=== PATIENT | male | born 1965 | race African-American/Black ===

== ENCOUNTER 2024-10-26 10:14 | Inpatient (IN) | payer MEDICAID, SELFPAY ==
[2024-10-26] VITALS (14 sets, daily range): BP systolic 154–211; BP diastolic 77–98; PULSE 55–69; RESP 15–20; TEMP 36.3–36.7; O2SAT 93–100; BMI 27.5
--- NOTE | 2024-10-26 10:23 | EKG_ITS ---
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
--- NOTE | 2024-10-26 10:23 | ED.NEUROSD ---
HPI - Neuro Symptoms/Deficit General Chief Complaint: Neuro Symptoms/Deficit Stated Complaint: poss stroke Time Seen by Provider: 10/26/24 10:22 History of Present Illness HPI Narrative: Patient brought self here. Complaints of left facial droop that involves the left forehead, and slurred speech. No limb complaints. Patient has baseline left leg weakness from injury to this leg years ago. Uses a cane. Complains of headache. Patient states he has on a blood thinner but uncertain of the name. Has not taken his blood pressure medication this morning. Complains of generalized headache. No nausea or vomiting. No vision changes. Unable to close his left eye. Has obvious left facial droop that involves the left forehead. Unable to wrinkle the left side forehead. Patient outside window for TNK/tPA. Onset 10:00 p.m. last night. Over 12 hours ago Related Data Home Medications Medication Instructions Recorded Confirmed Xarelto 20 mg PO 1XD 10/26/24 10/26/24 atorvastatin 20 mg tablet (Lipitor) 40 mg PO QDAY 10/26/24 10/26/24 fluoxetine 20 mg capsule 20 mg PO DAILY 10/26/24 10/26/24 gabapentin 600 mg PO 1XD 10/26/24 losartan 100 mg 10/26/24 metformin 1,000 mg PO 1XD 10/26/24 10/26/24 metoprolol succinate 100 mg PO 1XD 10/26/24 10/26/24 spironolactone 50 mg 10/26/24 Allergies Allergy/AdvReac Type Severity Reaction Status Date / Time No Known Drug Allergies Allergy Verified 10/26/24 15:05 Review of Systems Review of Systems Narrative: GENERAL: Negative chills, fatigue, malaise, fever, sweats. HEENT: Negative sinus pain, ear pain, sore throat RESPIRATORY: Negative dyspnea, cough CARDIOVASCULAR: Negative chest pain, palpitations GASTROINTESTINAL: Negative nausea, vomiting, abdominal pain : Negative dysuria, frequency, hematuria MUSCULOSKELETAL: Negative muscle or bony pain SKIN: Negative rash, skin lesions NEUROLOGIC: Negative weakness, numbness, positive slurred speech facial droop and headache ROS Unobtainable: All systems reviewed & are unremarkable except as noted in HPI and below Patient History Social History household members: family Smoking Status: Never smoker Exam Narrative Exam Narrative: GENERAL: in no distress, not toxic not dyspneic HEAD: Normocephalic. EYES: Pupils equal round ENT: Mucous membranes moist. NECK: Trachea midline. CARDIOVASCULAR: Regular rate and rhythm RESPIRATORY: Clear to auscultation. Breath sounds equal bilaterally. No wheezes, rales, or rhonchi. GASTROINTESTINAL: Abdomen soft, non-tender EXTREMITIES: No gross deformities. BACK: No flank tenderness. NEURO: AOx4. Has slurred speech. Left facial droop involving the left forehead unable to wrinkle. Weak left eyelid closure.. 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 Has chronic left leg weakness due to trauma in the past. Able to lift right leg without difficulty. No drift. Negative pronator drift. Light touch intact to bilateral face but feels a little different on the lower and upper left-sided face. Light touch intact to legs and hands bilaterally SKIN: Warm and dry PSYCH: Not anxious, is cooperative Initial Vital Signs Initial Vital Signs: Vital Signs Pulse Oximetry 93 10/26/24 10:18 Scores NIH Stroke Scale Level of Conciousness: Alert, keenly responsive Ask month/age: Answers both questions correctly. Open/close eyes, close hand: Performs both tasks correctly Best gaze horizontal: Normal Visual lubin: No visual loss Facial palsy: Complete paralysis, absence of movement in the upper and lower face Left arm drift: No drift for full 10 sec Right arm drift: No drift for full 10 sec Left leg drift: No drift for full 5 sec Right leg drift: No drift for full 5 sec Limb ataxia: Absent Sensory on face/arms/legs: Mild to moderate sensory loss, can tell touch Best language: No aphasia, normal Dysarthria: Mild to mod,some slurring Extinction or inattention: No abnormality Total NIH Stroke scale score: 5 Course Orders Ordered: Acetaminophen (Acetaminophen 325 Mg Tablet) 650 mg PO Q6H PRN PRN Reason: Fever/Mild Pain (1-3) Last Admin: 10/27/24 05:50 Dose: 650 mg Documented By: Admin: 10/26/24 18:26 Dose: 650 mg Documented By: BT Artificial Tears (Carboxymethylcellulose Drops) 1 drops EYE-LEFT PRN PRN PRN Reason: Dry Eye(s) Artificial Tears (Mineral Oil/Petrol Ophth Oint 3.5 Gm) 1 applic EYE-LEFT BID PRN PRN Reason: Irritation Aspirin (Aspirin Ec 81 Mg Tablet) 81 mg PO DAILY [facility] Last Admin: 10/27/24 08:49 Dose: 81 mg Documented By: GLENNY Atorvastatin Calcium (Atorvastatin 20 Mg Tablet) 80 mg PO BEDTIME [facility] Clopidogrel Bisulfate (Clopidogrel 75 Mg Tablet) 75 mg PO DAILY [facility] Last Admin: 10/27/24 08:49 Dose: 75 mg Documented By: GLENNY Erythromycin (Erythromycin Ophth 1 Gm Oint) 1 applic EYE-LEFT BID [facility] Last Admin: 10/27/24 05:43 Dose: 1 applic Documented By: Admin: 10/26/24 22:30 Dose: 1 applic Documented By: MANNY Dextrose (D10w) 100 mls @ 1,200 mls/hr IV PRN PRN PRN Reason: Hypoglycemia Insulin Human Lispro (Insulin Lispro 100 Unit/Ml 3ml Vial) 0 unit [facility]; Protocol Last Admin: 10/27/24 07:53 Dose: Not Given Documented By: GLENNY Naloxone HCl (Naloxone 0.4 Mg/Ml Vial) 0.2 mg IV Q2MIN PRN PRN Reason: Opiate Reversal Ondansetron HCl (Ondansetron 4 Mg/2 Ml Inj) 4 mg IV Q8HR PRN PRN Reason: Nausea And Vomiting Discontinued Medications Aspirin (Aspirin 81 Mg Chew Tab) 324 mg PO NOW ONE Stop: 10/26/24 17:03 Last Admin: 10/26/24 17:19 Dose: 324 mg Documented By: Atorvastatin Calcium (Atorvastatin 20 Mg Tablet) 80 mg PO NOW ONE Stop: 10/26/24 20:50 Last Admin: 10/26/24 22:23 Dose: 80 mg Documented By: MANNY Clopidogrel Bisulfate (Clopidogrel 75 Mg Tablet) 75 mg PO NOW ONE Stop: 10/26/24 17:03 Last Admin: 10/26/24 17:19 Dose: 75 mg Documented By: Erythromycin (Erythromycin Ophth 1 Gm Oint) 1 applic EYE-LEFT NOW ONE Stop: 10/26/24 15:55 Last Admin: 10/26/24 15:59 Dose: 1 applic Documented By: Erythromycin (Erythromycin Ophth 1 Gm Oint) 1 applic EYE-LEFT NOW [facility] Hydralazine HCl (Hydralazine 20 Mg/Ml Vial) 10 mg IV NOW ONE Stop: 10/26/24 14:34 Last Admin: 10/26/24 14:38 Dose: Not Given Documented By: BRANDI Hydromorphone HCl (Hydromorphone 1 Mg Inj) 1 mg IV NOW ONE Stop: 10/26/24 11:36 Last Admin: 10/26/24 11:45 Dose: Not Given Documented By: Lorazepam (Lorazepam 2 Mg/Ml Inj) 0.5 mg IV NOW ONE Stop: 10/26/24 15:17 Last Admin: 10/26/24 15:19 Dose: 0.5 mg Documented By: Metoprolol Succinate (Metoprolol Er 50 Mg Tablet) 50 mg PO NOW ONE Stop: 10/26/24 14:37 Last Admin: 10/26/24 14:43 Dose: 50 mg Documented By: Morphine Sulfate (Morphine 4 Mg/Ml Inj) 4 mg IV NOW ONE Stop: 10/26/24 10:26 Last Admin: 10/26/24 11:33 Dose: Not Given Documented By: Ondansetron HCl (Ondansetron 4 Mg/2 Ml Inj) 4 mg IV NOW ONE Stop: 10/26/24 10:26 Last Admin: 10/26/24 11:33 Dose: Not Given Documented By: Oxycodone HCl (Oxycodone Ir 5 Mg Tablet) 5 mg PO NOW ONE Stop: 10/26/24 21:55 Last Admin: 10/26/24 22:22 Dose: 5 mg Documented By: MANNY Oxycodone HCl (Oxycodone Ir 5 Mg Tablet) 5 mg PO NOW ONE Stop: 10/27/24 07:00 Last Admin: 10/27/24 07:05 Dose: 5 mg Documented By: OSCAR Vital Signs Vital signs: Vital Signs - 8 hr 10/26/24 10:18 10/26/24 10:20 10/26/24 10:20 Temperature Pulse Rate 65 Respiratory Rate 18 Blood Pressure 211/96 H Pulse Oximetry 93 99 Oxygen Delivery Method 10/26/24 10:21 10/26/24 10:30 10/26/24 10:31 Temperature 97.7 F Pulse Rate 69 60 Respiratory Rate 16 20 Blood Pressure 211/96 H 180/79 H Pulse Oximetry 97 100 Oxygen Delivery Method Room Air 10/26/24 10:31 10/26/24 11:00 10/26/24 11:01 Temperature Pulse Rate 58 L 56 L Respiratory Rate 19 15 Blood Pressure 167/77 H Pulse Oximetry 99 100 Oxygen Delivery Method 10/26/24 11:01 10/26/24 13:42 10/26/24 14:43 Temperature 98.1 F Pulse Rate 55 L 56 L 69 Respiratory Rate 15 17 Blood Pressure 181/83 H 181/85 H Pulse Oximetry 99 100 Oxygen Delivery Method Room Air 10/26/24 15:29 Temperature Pulse Rate 61 Respiratory Rate Blood Pressure 154/78 H Pulse Oximetry Oxygen Delivery Method MDM - Neuro Symptoms/Deficit Lab Data 10/26/24 10:20 10/26/24 10:20 Labs: Lab Results 10/26/24 Range/Units 10:20 WBC 10.0 (4.5-11.0) X10^3/uL RBC 3.95 L (4.5-5.9) X10^6/uL Hgb 13.0 L (13.5-17.5) g/dL Hct 38.5 L (41-53) % MCV 97.5 (80-100) fL MCH 32.9 (26-34) PG MCHC 33.8 (30-36) % RDW 13.0 (11.6-14.8) % Plt Count 264 (150-400) X10^3/uL Neut % (Auto) 49.1 L (50-75) % Lymph % (Auto) 40.0 (25-40) % Franklin % (Auto) 6.6 (3-14) % Eos % (Auto) 3.6 (2-4) % Baso % (Auto) 0.7 (0-2) % Neut # (Auto) 4900 (8708-2539) /uL Lymph # (Auto) 4000 (6070-2835) /uL Franklin # (Auto) 700 (0-900) /uL Eos # (Auto) 400 (0-450) /uL Baso # (Auto) 100 (0-100) /uL PT 12.4 (9.4-12.5) SECONDS INR 1.1 (0.9-1.3) APTT 38 H (25.1-36.5) SECONDS Sodium 139 (137-145) mmol/L Potassium 4.6 (3.4-5.1) mmol/L Chloride 110 H (98-107) mmol/L Carbon Dioxide 26 (22-32) mmol/L BUN 14 (9-20) mg/dL Creatinine 1.44 H (0.66-1.25) mg/dL Estimated GFR 55 L (>60) mL/min BUN/Creatinine Ratio 9.7 (6-22) Glucose 125 H (80-110) mg/dL Calcium 9.2 (8.4-10.2) mg/dL Total Bilirubin 0.8 (0.2-1.3) mg/dL AST 28 (17-59) IU/L ALT 21 (<50) IU/L Alkaline Phosphatase 79 (38-126) U/L Total Creatine Kinase 60 (55-170) U/L Troponin I < 0.012 (0.01-0.034) ng/mL Total Protein 8.5 H (6.3-8.2) g/dL Albumin 4.3 (3.5-5.0) g/dL Globulin 4.2 H (1.7-4.1) g/dL Albumin/Globulin Ratio 1.0 (1.0-2.8) Point of Care Testing Glucose POC 114 Imaging Data MRI brain: Radiologist's Impression: [address] [address] Magnetic Resonance Report Signed Patient: Michael Mckinley MR#: [id number] : 1965 Acct:[id number] Age/Sex: 59 / M Date of Service: 10/26/24 Loc: ED Accession Number: [id number] Procedure: MR head/brain wo con Ordering Provider: Yury Mir MD PROCEDURE: MR HEAD/BRAIN WO CON INDICATIONS: Left facial droop and slurred speech TECHNIQUE: Non-contrast axial T1 spin echo, axial T2 fast spin echo, sagittal and axial FLAIR, coronal T2 fast spin echo, axial gradient echo, axial diffusion and ADC through the brain. COMPARISON: None. FINDINGS: Image quality: Excellent. CSF spaces: Ventricles appear symmetric in size and shape. Basal cisterns are patent. No extra-axial fluid collections. Brain: No intracranial bleeds or mass effects. There is cerebral volume loss for age. There are greater than expected for patient age moderate to severe periventricular and deep white matter chronic small vessel ischemic changes. Brainstem appears normal. Diffusion-weighted images show a small area of restricted water diffusion in the body of the corpus callosum, slightly eccentric to the left, consistent with acute infarct, measuring approximately 1.0 x 0.6 cm. Reference diffusion image 65 of series 5 and ADC map image 15 of series 6. There is associated cytotoxic edema, well seen on midline sagittal T2 FLAIR image 13 of series 7. It is noted that there is atrophy of the rostrum of the corpus callosum from previous infarct. Reference sagittal image 12 of series 7. Also present is a midline posterior acute pontine infarct with an area of restricted water diffusion measuring 0.6 x 0.4 cm on image 57 of series 5. There is also a acute lacunar infarction of the right basal ganglia measuring 0.8 x 1.2 cm on image 61 of series 5. There is a late subacute infarct involving the anterior right carolyn which is seen on axial images 58 of series 5 and ADC map image 8 of series 6. There is an old small left paramidline pontine infarct on these images, as well. Normal intravascular flow voids are present. Skull and face: Calvarial bone marrow is normal in signal. Orbits are normal. Sinuses: Sinuses and mastoids are clear. IMPRESSION: 1. There are 3 separate small areas of acute infarct. 1 of these areas involves the body of the corpus callosum. A 2nd of these areas is the midline posterior carolyn. A 3rd of these areas is the right basal ganglia. 2. Late subacute small anterior right carolyn infarct. 3. Old small left paramidline pontine infarct. 4. Old infarct involving the rostrum of the corpus callosum. 5. Age-related volume loss and moderate to severe small vessel ischemic change, greater than expected for patient age. Dictated by: Morgan Mccoy M.D. on 10/26/2024 at 16:04 Approved by: Morgan Mccoy M.D. on 10/26/2024 at 16:12 [facility] Narrative Medical decision making narrative: Patient brought self here. Complaints of left facial droop that involves the left forehead, and slurred speech. No limb complaints. Patient has baseline left leg weakness from injury to this leg years ago. Uses a cane. Complains of headache. Patient states he has on a blood thinner but uncertain of the name. Has not taken his blood pressure medication this morning. Complains of generalized headache. No nausea or vomiting. No vision changes. Unable to close his left eye. Has obvious left facial droop that involves the left forehead. Unable to wrinkle the left side forehead. Patient outside window for TNK/tPA. Onset 10:00 p.m. last night. Over 12 hours ago Our CAT scan machine has broken today. Unable to get a CT imaging. We will have to transfer to [facility] for the CT imaging and bring patient back. It is not a transfer of care. Blood sugar [address] exam [address] head CT angiogram head and neck EKG CBC CMP, morphine Zofran registered nurse cardiac telemetry MDM Medical records reviewed: No recent visit for this complaint Differential considered: Includes but not limited to stroke head bleed Goel's palsy neoplasm Lab Test results independently reviewed as above. Pertinent findings: Independently reviewed EKG sinus bradycardia rate [address] elevation or depression Imaging studies independently reviewed: CT head CT angiogram head and neck no acute finding patient was sent to [facility] and back MRI brain acute stroke Consultations: 3:11 p.m.. Spoke with [facility] tele stroke, Dr. 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 Outside window for any TNK. No tele video conference needed. Agrees MRI to be done today. 5:03 p.m.. Spoke with the [facility] tele stroke again Dr. Monaco, admit echocardiogram aspirin Plavix to be ordered 5:[address] Varela, who will see patient for admission Treatments: Hydralazine metoprolol lorazepam erythromycin ointment for the eye, Zofran Dilaudid morphine Re-evaluations: 5:00 p.m.. Updated patient results of MRI acute stroke. Will need to be admitted. He does understand and agree Discussion: Appropriate for admission for balance workup for acute stroke. Diagnosis: Acute stroke Stroke Core Measures Exclusion Criteria TPA in CVA: Symptom Onset >3 or 4.5 Hours Discharge Plan Departure Patient Disposition: Admitted as Observation Clinical Impression: Cerebrovascular accident Qualifiers: CVA mechanism: unspecified Qualified Code(s): I63.9 - Cerebral infarction, unspecified Admit Date/Time: 10/26/24 17:13 Admit Provider: Carlos Varela
[2024-10-26 10:33] LABS: Add Manual Diff / Slide Review NO; Basophils Absolute Auto 100 /uL (0-100); Basophils Percent Auto 0.7 % (0-2); Eosinophils Absolute Auto 400 /uL (0-450); Eosinophils Percent Auto 3.6 % (2-4); Hematocrit 38.5 % (41-53); Lymphocytes Absolute Auto 4000 /uL (1100-4500); Mean Corpuscular HGB Conc 33.8 % (30-36); Mean Corpuscular Hemoglobin 32.9 PG (26-34); Mean Corpuscular Volume 97.5 fL (80-100); Monocytes Absolute Auto 700 /uL (0-900); Monocytes Percent Auto 6.6 % (3-14); Neutrophils Absolute Auto 4900 /uL (1500-7000); Neutrophils Percent Auto 49.1 % (50-75); Platelet Count 264 X10^3/uL (150-400); Red Blood Cell Count 3.95 X10^6/uL (4.5-5.9)
[2024-10-26 10:40] LABS: INR 1.1 (0.9-1.3); Prothrombin Time 12.4 SECONDS (9.4-12.5)
[2024-10-26 10:42] LABS: PTT Partial Thromboplastin Tim 38 SECONDS (25.1-36.5)
[2024-10-26 10:44] LABS: Alanine Aminotransferase 21 IU/L (<50); Albumin 4.3 g/dL (3.5-5.0); Alkaline Phosphatase 79 U/L (38-126); Aspartate Aminotransferase 28 IU/L (17-59); BUN Creatinine Ratio 9.7 (6-22); Bilirubin Total 0.8 mg/dL (0.2-1.3); Blood Urea Nitrogen 14 mg/dL (9-20); Calcium 9.2 mg/dL (8.4-10.2); Carbon Dioxide 26 mmol/L (22-32); Chloride 110 mmol/L (98-107); Creatine Kinase 60 U/L (55-170); Estimated Glomerular Filt Rate 55 mL/min (>60); Globulin 4.2 g/dL (1.7-4.1); Glucose 125 mg/dL (80-110); HEMOLYSIS < 15 (0-50); Potassium 4.6 mmol/L (3.4-5.1); Sodium 139 mmol/L (137-145); Total Protein 8.5 g/dL (6.3-8.2)
[2024-10-26 10:56] LABS: Troponin I < 0.012 ng/mL (0.01-0.034)
--- NOTE | 2024-10-26 11:17 | PC.NURSE ---
Pt transported to [facility] via ambulance. Pt to return after CT scan.
--- NOTE | 2024-10-26 11:40 | PC.NURSE ---
Pt returned to room from MRI. Pt requesting something for pain. Dr Daly notified. New orders received.
[2024-10-26] MEDS: METOPROLOL ER 50 MG TABLET PO (14:43)
--- NOTE | 2024-10-26 15:07 | DI.MRI.S_ITS ---
PROCEDURE: MR HEAD/BRAIN WO CON INDICATIONS: Left facial droop and slurred speech TECHNIQUE: Non-contrast axial T1 spin echo, axial T2 fast spin echo, sagittal and axial FLAIR, coronal T2 fast spin echo, axial gradient echo, axial diffusion and ADC through the brain. COMPARISON: None. FINDINGS: Image quality: Excellent. CSF spaces: Ventricles appear symmetric in size and shape. Basal cisterns are patent. No extra-axial fluid collections. Brain: No intracranial bleeds or mass effects. There is cerebral volume loss for age. There are greater than expected for patient age moderate to severe periventricular and deep white matter chronic small vessel ischemic changes. Brainstem appears normal. Diffusion-weighted images show a small area of restricted water diffusion in the body of the corpus callosum, slightly eccentric to the left, consistent with acute infarct, measuring approximately 1.0 x 0.6 cm. Reference diffusion image 65 of series 5 and ADC map image 15 of series 6. There is associated cytotoxic edema, well seen on midline sagittal T2 FLAIR image 13 of series 7. It is noted that there is atrophy of the rostrum of the corpus callosum from previous infarct. Reference sagittal image 12 of series 7. Also present is a midline posterior acute pontine infarct with an area of restricted water diffusion measuring 0.6 x 0.4 cm on image 57 of series 5. There is also a acute lacunar infarction of the right basal ganglia measuring 0.8 x 1.2 cm on image 61 of series 5. There is a late subacute infarct involving the anterior right carolyn which is seen on axial images 58 of series 5 and ADC map image 8 of series 6. There is an old small left paramidline pontine infarct on these images, as well. Normal intravascular flow voids are present. Skull and face: Calvarial bone marrow is normal in signal. Orbits are normal. Sinuses: Sinuses and mastoids are clear. IMPRESSION: 1. There are 3 separate small areas of acute infarct. 1 of these areas involves the body of the corpus callosum. A 2nd of these areas is the midline posterior carolyn. A 3rd of these areas is the right basal ganglia. 2. Late subacute small anterior right carolyn infarct. 3. Old small left paramidline pontine infarct. 4. Old infarct involving the rostrum of the corpus callosum. 5. Age-related volume loss and moderate to severe small vessel ischemic change, greater than expected for patient age. Dictated by: Morgan Mccoy M.D. on 10/26/2024 at 16:04 Approved by: Morgan Mccoy M.D. on 10/26/2024 at 16:12
[2024-10-26] MEDS: LORazepam 2 MG/ML INJ 0.5 MG IV (15:19)
[2024-10-26] MEDS: ERYTHROMYCIN OPHTH 1 GM OINT 1 APPLIC EYE-LEFT ×2 (15:59→22:30)
[2024-10-26] MEDS: ASPIRIN 81 MG CHEW TAB 324 MG PO (17:19)
[2024-10-26] MEDS: CLOPIDOGREL 75 MG TABLET PO (17:19)
[2024-10-26] MEDS: ACETAMINOPHEN 325 MG TABLET 650 MG PO (18:26)
--- NOTE | 2024-10-26 21:12 | PM.HP.1 ---
History of Present Illness History of Present Illness Date Patient Seen: 10/27/24 Chief complaint: poss stroke Narrative: Michael Mckinley, 59 M, with h/o HTN, HLD on Atorvastatin 40 mg daily, ,DM 2 on Metformin, A fib on Chronic A./C with Xaerlto 20 mg each morning, ? CHF ( no records to review incl Echo)Anxiety and depression, who resides in [place] where he is managed for his health problems by his PCP. Patient states he is compliant with all his prescrivbed meds, including Xarelto, last dose taken morning of 10/26 Pt visiting his elderly parents in [facility]. On 10/25 around 10pm iwas his last known normal. He endorses a moderate R sided headache, in the evening of 10/25. He did not take any pain relief, and went to sleep. Headache was not radiating to his neck, he had noted some blurriness of hios Left eye, but he ignored it and went to bed, He denies loss of visikon, Dizziness or LOC. He also noted balance problems evening of 10/25, with a tendency to lean towards R side, denies fall. This morning upon waking up, he noted some speech difficulty and noted his left sided droop. He continued with his R Sided Headache, 5-7/10 as well as continued with Left eye Blurriness. He denies weakness of any extremity, denies falls or hitting his head. Denies CP, SOB, Palpitations, SOB, OLIVER, LE swelling, N/V/D/ Abd Pain, Dysuria , Flank pain or Hematuria Denies cough, F/C. Denies prior h/o TIA/ Stroke, Denies h/o VT, CHF or Cancer He came to ED morning of 10/26, around 10 am, 12 hrs after LKN In ED, he was Hypertensive, Afebrile, O2 sats adequate on RA, HR 60, SBP elevated NIHSS 5 in ED, Left facial droop, Left gaze palsy, Left eye blurred vision, unable to close Left eye, initial mild speech difficulty As CT not available at , pt had MRI Brain, indicating multiple infarcts, no bleed, no mass, he was transported to [facility] for CT head, and CTA head and neck. MRI Brain: [address] [address] Progress Note Patient: Michael Mckinley MR#: [id number] : 1965 Acct:[id number] Age/Sex: 59 / M Admit Date: 10/26/24 Provider: Rubens Pantoja MD Subjective Subjective Interval history: Summary: The patient was admitted with acute stroke symptoms. His time window was over 12 hours. MRI revealed multiple strokes. Subjective: Exam Vital Signs (past 8 hours): - 10/27/2401:54 10/27/2404:00 10/27/2406:00 Temperature 98.3 F Pulse Rate 86 Respiratory Rate 18 Blood Pressure 148/84 H Pulse Oximetry 99 96 96 Oxygen Delivery Method Room Air Room Air Oxygen Flow Rate 0 Oxygen Delivery Method Room Air Oxygen Flow Rate 0 Narrative Exam Narrative: NAD, alert and oriented. Fluent speech. Lungs are clear, normal rate and effort. Heart is regular, no murmur gallop or rub. Abdomen is soft, non distended. Extremities are free of edema. Objective ECG Impression: Sinus bradycardia Minimal voltage criteria for LVH, may be normal variant ( R in aVL ) Imaging Brain MRI:: Radiologist's impression: 1. There are 3 separate small areas of acute infarct. 1 of these areas involves the body of the corpus callosum. A 2nd of these areas is the midline posterior carolyn. A 3rd of these areas is the right basal ganglia. 2. Late subacute small anterior right carolyn infarct. 3. Old small left paramidline pontine infarct. 4. Old infarct involving the rostrum of the corpus callosum. 5. Age-related volume loss and moderate to severe small vessel ischemic change, greater than expected for patient age . Tele Stroke at / Dr Monaco, called per ED and advice was to start DAPT , Pt recd ASA and Plavix, he was able to swallow without difficulty. 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 Social History household members: family Smoking Status: Never smoker Meds Home Medications and Allergies Home Medications Medication Instructions Recorded Confirmed Type atorvastatin 20 mg tablet (Lipitor) 40 mg PO QDAY 10/26/24 10/26/24 History fluoxetine 20 mg capsule 20 mg PO DAILY 10/26/24 10/26/24 History Xarelto 20 tab PO DAILY 10/27/24 10/27/24 History gabapentin 600 mg tablet 600 mg PO DAILY 10/27/24 10/27/24 History losartan 100 mg tablet 100 mg PO DAILY 10/27/24 10/27/24 History metformin 1,000 mg tablet 1,000 mg PO DAILY 10/27/24 10/27/24 History metoprolol succinate 100 mg 100 mg PO DAILY 10/27/24 10/27/24 History tablet,extended release 24 hr spironolactone 50 mg tablet 50 mg PO DAILY 10/27/24 10/27/24 History Allergies Allergy/AdvReac Type Severity Reaction Status Date / Time No Known Drug Allergies Allergy Verified 10/26/24 15:05 Review of Systems Review of Systems ROS: Yes All systems reviewed with the patient and are negative except as otherwise documented (see HPI) Exam Vital Signs (past 8 hours): - 10/26/24 13:42 10/26/24 14:43 10/26/24 15:29 Temperature 98.1 F Pulse Rate 56 L 69 61 Respiratory Rate 17 Blood Pressure 181/83 H 181/85 H 154/78 H Pulse Oximetry 100 Oxygen Delivery Method Room Air Oxygen Flow Rate 10/26/24 18:17 10/26/24 18:28 10/26/24 20:00 Temperature 97.4 F L 97.4 F L Pulse Rate 56 L 60 Respiratory Rate 18 18 Blood Pressure 186/98 H 174/98 H Pulse Oximetry 99 98 99 Oxygen Delivery Method Room Air Oxygen Flow Rate 0 0 0 Oxygen Delivery Method Room Air Oxygen Flow Rate 0 Glucose POC: 114 Narrative Exam Narrative: Pt is Alert, awake, in no acute distress, answering all questions appropriately. He still c/o R sided H/A at 7/10 , non throbbing, requesting something stronger than Tylenol as that has not helped relieve his VILLALBA Const General: cooperative Orientation: oriented x3 HENMT Head: normocephalic and atraumatic Ears: hearing grossly normal bilaterally, external ears normal and other Nose: nares normal Face and sinus: other (L Facial droop, Unable to close L eye.Unable to make wrinkles L Forehead) Mouth: oral mucosae normal, tongue normal, oropharynx normal and moist mucous membranes Throat: posterior oropharynx normal Eyes Pupils: PERRL EOM: EOM intact bilaterally (only on R side/ has L gaze Palsy) Neck Neck: full ROM, trachea midline and supple Thyroid: thyroid normal Other: No Lymphadenopathy Chest Chest: other (Nn labored respiration/ CTA BS present and equal bilat. No W/R/R) Cardio Rate: bradycardic Rhythm: regular rhythm Heart Sounds: other (S1 S2, No M/G/R) Pulses: normal peripheral pulses GI Inspection: other Auscultation: other (Soft, NT, ND, BS present and WNL, No Organomegaly. no flank tenderness) Back/Spine/Pelvis Back: normal to inspection and other (No back tenderness) Skin General: no rashes or lesions noted Neuro Cranial Nerves: CN's II-XI intact bilaterally (except Left Ocular muscles causing Left Gaze palsy) Cognition: normal cognition Speech: speech normal Gait: normal gait (Per ED observation) Motor: strength 5/5 throughout and no pronator drift (in upper and lower extremities) Sensory Exam: no sensory deficits noted Extrem General: capillary refill normal, no pedal edema and no calf tenderness Other: DTR bilaterally in upper and lower ext: 3/5 symmetric Psych Appearance: grossly normal Mental Status: mental status grossly normal Mood: congruent mood Affect: normal affect Attitude: cooperative Thought Process: normal Thought Content: normal Judgment: judgment good Objective ECG Impression: see HPI ( reviewd by me) Imaging MRI - head: Radiologist's impression: [address] [address] Progress Note Patient: Michael Mckinley MR#: [id number] : 1965 Acct:[id number] Age/Sex: 59 / M Admit Date: 10/26/24 Provider: Rubens Pantoja MD Subjective Subjective Interval history: Summary: The patient was admitted with acute stroke symptoms. His time window was over 12 hours. MRI revealed multiple strokes. Subjective: Exam Vital Signs (past 8 hours): - 10/27/2401:54 10/27/2404:00 10/27/2406:00 Temperature 98.3 F Pulse Rate 86 Respiratory Rate 18 Blood Pressure 148/84 H Pulse Oximetry 99 96 96 Oxygen Delivery Method Room Air Room Air Oxygen Flow Rate 0 Oxygen Delivery Method Room Air Oxygen Flow Rate 0 Narrative Exam Narrative: NAD, alert and oriented. Fluent speech. Lungs are clear, normal rate and effort. Heart is regular, no murmur gallop or rub. Abdomen is soft, non distended. Extremities are free of edema. Objective ECG Impression: Sinus bradycardia Minimal voltage criteria for LVH, may be normal variant ( R in aVL ) Imaging Brain MRI:: Radiologist's impression: 1. There are 3 separate small areas of acute infarct. 1 of these areas involves the body of the corpus callosum. A 2nd of these areas is the midline posterior carolyn. A 3rd of these areas is the right basal ganglia. 2. Late subacute small anterior right carolyn infarct. 3. Old small left paramidline pontine infarct. 4. Old infarct involving the rostrum of the corpus callosum. 5. Age-related volume loss and moderate to severe small vessel ischemic change, greater than expected for patient age. Labs 10/26/24 10:20 10/26/24 10:20 Labs: Laboratory Results - last 24 hr 10/26/24 10:20 WBC 10.0 RBC 3.95 L Hgb 13.0 L Hct 38.5 L MCV 97.5 MCH 32.9 MCHC 33.8 RDW 13.0 Plt Count 264 Neut % (Auto) 49.1 L Lymph % (Auto) 40.0 [place] % (Auto) 6.6 Eos % (Auto) 3.6 Baso % (Auto) 0.7 Neut # (Auto) 4900 Lymph # (Auto) 4000 [place] # (Auto) 700 Eos # (Auto) 400 Baso # (Auto) 100 PT 12.4 INR 1.1 APTT 38 H Sodium 139 Potassium 4.6 Chloride 110 H Carbon Dioxide 26 BUN 14 Creatinine 1.44 H Estimated GFR 55 L BUN/Creatinine Ratio 9.7 Glucose 125 H Calcium 9.2 Total Bilirubin 0.8 AST 28 ALT 21 Alkaline Phosphatase 79 Total Creatine Kinase 60 Troponin I < 0.012 Total Protein 8.5 H Albumin 4.3 Globulin 4.2 H Albumin/Globulin Ratio 1.0 Assessment & Plan Assessment and plan (1) Cerebrovascular accident: Problem details: Multiple infarcts most likely Ischemic stroke in pt already compliant with Xarelto, given h/o PAF More than 12 hrs of LKN , out of Tpa orTNK window No major occlusion or arterial stenosis on CTA Head and neck At risk for future ischemic strokes given multiple stroke risk factors / see HPI Pt has high risk of stroke recurrence Qualifiers: CVA mechanism: unspecified Qualified Code(s): I63.9 - Cerebral infarction, unspecified Status: Acute (2) Paralytic ptosis of left upper eyelid: Status: Acute (3) Acquired horizontal gaze palsy: Status: Acute (4) Facial droop due to stroke: Status: Acute (5) Blurred vision, left eye: Status: Acute (6) Uncontrolled hypertension: Status: Acute (7) 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: Problem details: Sliding Scale Insulin / Accu checks AC HS Qualifiers: 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: without petroleum terminal 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 use Qualified Code(s): E11.22 - Type 2 diabetes mellitus with diabetic chronic kidney disease; N18.2 - Chronic kidney disease, stage 2 (mild) Status: Acute (8) HLD (hyperlipidemia): Qualifiers: Hyperlipidemia type: mixed hyperlipidemia Qualified Code(s): E78.2 - Mixed hyperlipidemia Status: Acute (9) Chronic diastolic (congestive) heart failure: Status: Acute Plan Admit tfor observation Cardiac monitoiring and continously Continous O2 sat monitoring ASA and Plavix give, Echo ordered as advised per Tele stroke / [facility] Day team consider updating Neurologist pt's cmpliance with Xarelto, and if pt would benefit from a different DOAC for secondary stroke prevention ( given h/o PAF) vs continue DAPT Echo ordered pending result Neuro checks as ordered, for any new Neuro deficits obtain CT head STAT to r/o Bleed / Hgic transformation of Ischemic Cerebral/ Pontine foci Evidence of prior Ischemic stroke on MRI brain , pt does not recall any neuro deficits in thye past. 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 CT not working at today so patient had MRI brain done: with multiple Intracranial Ischemic Infarcts as above, and for CTA head and neck and Head CT ,transported to [facility] . No Arterial occlusions or narrowing per CTA per ED note. [facility] Tele stroke was consulted, Dr Monaco advised admit patient, and start DAPT , ASA 325 mg and Clopidogrel 75 mg given , pt able to swallow meds safely inspite of L Facial droop. Shall give Atorvastatin high dose at 80 mg now and continue daily. Echo in the morning Cardiac monitoring Neuro checks as ordered. Time-Based Coding :: [TOTAL MINUTES] spent with patient and on the chart (including review of chart, obtaining history, exam, reviewing outside data, placing orders, documenting exam and treatment plan, and counseling patient) on [DATE]. Scores CHADS-VASc Congestive heart failure: yes Hypertension: yes Age 75 years or older: no Diabetes mellitus: yes Stroke, TIA, or TE: yes Vascular disease: no Age 65 to 74 years: no Sex category (female): Male CHADS-VASc Score: 5
[2024-10-26] MEDS: OXYCODONE IR 5 MG TABLET PO (22:22)
[2024-10-26] MEDS: ATORVASTATIN 20 MG TABLET 80 MG PO (22:23)
[2024-10-27] VITALS (12 sets, daily range): BP systolic 148–181; BP diastolic 84–105; PULSE 51–86; RESP 16–19; TEMP 36.2–37; O2SAT 96–99
[2024-10-27] MEDS: ERYTHROMYCIN OPHTH 1 GM OINT 1 APPLIC EYE-LEFT ×2 (05:43→21:40)
[2024-10-27] MEDS: ACETAMINOPHEN 325 MG TABLET 650 MG PO ×2 (05:50→18:52)
[2024-10-27 06:59] LABS: Appearance Urine UA CLEAR; Bilirubin Urine UA NEGATIVE (NEGATIVE); Color Urine UA YELLOW; Glucose Urine UA NEGATIVE (Negative); Ketones Urine UA NEGATIVE (NEGATIVE); Leukocyte Esterase Urine UA NEGATIVE (NEGATIVE); Nitrite Urine UA NEGATIVE (Negative); Occult Blood Urine UA NEGATIVE (Negative); Protein Urine UA 2+ (Negative); Urobilinogen Urine UA 0.2 E.U./dL (0.2)
[2024-10-27 07:01] LABS: Urine Volume 10mL (spun)
[2024-10-27 07:03] LABS: Bacteria Urine None Seen; Culture Indicated Urine Cult Not Indicated; RBC Urine None Seen (0-5/HPF); Squamous Epithelial Cell Urine None Seen (0-5/HPF); WBC Urine None Seen (0-5/HPF)
[2024-10-27] MEDS: OXYCODONE IR 5 MG TABLET PO ×3 (07:05→21:40)
[2024-10-27 07:09] LABS: Creatinine Urine Random 152.45 mg/dL; Sodium Urine Random 62 mmol/L (30-90)
[2024-10-27 07:40] LABS: Thyroid Stimulating Hormone 2.77 uIU/mL (0.47-4.68)
--- NOTE | 2024-10-27 08:10 | PM.PN.1 ---
Subjective Subjective Interval history: Summary: The patient was admitted with acute stroke symptoms. His time window was over 12 hours. MRI revealed multiple strokes. Subjective: He was doing well, he denies any weakness of arms and legs. His gait is unsteady, but this is chronic. He has a history of cervical and lumbar spine issues. He has a history of bilateral lazy eyes but notes he can not move his left eye at all since 2 days ago. He would blurry vision, this is now improved. His vision is fairly normal on the left and right eye. He does have diplopia as well relating to his inability to move his left eye. He also has a pronounced facial droop. Exam Vital Signs (past 8 hours): - 10/27/24 01:54 10/27/24 04:00 10/27/24 06:00 Temperature 98.3 F Pulse Rate 86 Respiratory Rate 18 Blood Pressure 148/84 H Pulse Oximetry 99 96 96 Oxygen Delivery Method Room Air Room Air Oxygen Flow Rate 0 Oxygen Delivery Method Room Air Oxygen Flow Rate 0 Narrative Exam Narrative: NAD, alert and oriented. Fluent speech. Lungs are clear, normal rate and effort. Heart is regular, no murmur gallop or rub. Abdomen is soft, non distended. Extremities are free of edema. Neuro: Motor strength 5/5 in arms and legs. He was pronounced left facial droop. His left eyelids are weak. His left eye does not move in any direction, the pupils are symmetric. His vision is normal in both eyes. Objective ECG Impression: Sinus bradycardia Minimal voltage criteria for LVH, may be normal variant ( R in aVL ) Imaging Brain MRI:: Radiologist's impression: 1. There are 3 separate small areas of acute infarct. 1 of these areas involves the body of the corpus callosum. A 2nd of these areas is the midline posterior carolyn. A 3rd of these areas is the right basal ganglia. 2. Late subacute small anterior right carolyn infarct. 3. Old small left paramidline pontine infarct. 4. Old infarct involving the rostrum of the corpus callosum. 5. Age-related volume loss and moderate to severe small vessel ischemic change, greater than expected for patient age. Labs 10/26/24 10:20 10/26/24 10:20 Labs: Laboratory Results - last 24 hr 10/26/24 10/27/24 10/27/24 10:20 05:32 06:35 WBC 10.0 RBC 3.95 L Hgb 13.0 L Hct 38.5 L MCV 97.5 MCH 32.9 MCHC 33.8 RDW 13.0 Plt Count 264 Neut % (Auto) 49.1 L Lymph % (Auto) 40.0 [place] % (Auto) 6.6 Eos % (Auto) 3.6 Baso % (Auto) 0.7 Neut # (Auto) 4900 Lymph # (Auto) 4000 [place] # (Auto) 700 Eos # (Auto) 400 Baso # (Auto) 100 PT 12.4 INR 1.1 APTT 38 H Sodium 139 Potassium 4.6 Chloride 110 H Carbon Dioxide 26 BUN 14 Creatinine 1.44 H Estimated GFR 55 L BUN/Creatinine Ratio 9.7 Glucose 125 H Calcium 9.2 Total Bilirubin 0.8 AST 28 ALT 21 Alkaline Phosphatase 79 Total Creatine Kinase 60 Troponin I < 0.012 Total Protein 8.5 H Albumin 4.3 Globulin 4.2 H Albumin/Globulin Ratio 1.0 TSH 2.77 Urine Color Yellow Urine Appearance Clear Urine pH 6.0 Ur Specific [place] 1.020 Urine Protein 2+ H Urine Glucose (UA) Negative Urine Ketones Negative Urine Occult Blood Negative Urine Nitrate Negative Urine Bilirubin Negative Urine Urobilinogen 0.2 Ur Leukocyte Esterase Negative Urine RBC None seen Urine WBC None seen Ur Squamous Epith Cells None seen Urine Bacteria None seen Ur Culture Indicated? 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 Acute stroke 2. Hypertension, present on admission and active 3. HLD, present on admission and active 4. Paroxysmal atrial fibrillation on chronic Xarelto, present on admission and active. 5. DM2, present on admission and active. Plan: -we will continue Xarelto and use aspirin monotherapy for the time being, continue high dose statin. -physical and occupational therapy evaluations as well as speech. He was likely a good candidate for inpatient rehab. -he denies any medication noncompliance with his Xarelto. He was in sinus rhythm today. -echo is pending. Time-Based Coding :: [TOTAL MINUTES] spent with patient and on the chart (including review of chart, obtaining history, exam, reviewing outside data, placing orders, documenting exam and treatment plan, and counseling patient) on [DATE].
[2024-10-27] MEDS: ASPIRIN EC 81 MG TABLET PO (08:49)
[2024-10-27] MEDS: CLOPIDOGREL 75 MG TABLET PO (08:49)
--- NOTE | 2024-10-27 10:16 | ST.IPIE ---
Visit Care Team Role Provider Type Romaine Nevarez MD Primary Care Provider Physician Specialty: Internal Medicine Address: [address] [place] [address], [address], [place], [address] Email: [email or web address] Yury Mir MD Emergency Provider Physician Referring Provider Specialty: Emergency Medicine Address: [address] [place] [address], [place], [address] Email: [email or web address] Carlos Varela, Admit Provider Physician Attending Provider Specialty: Internal Medicine Address: [address] [place] [address], [place], [address] Email: [email or web address] 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 Varela Reason for Referral Possible CVA Setting Assessment Location Acute Care Patient Information Identification Type Name,Wristband History Per H&P: Michael Mckinley, 59 M, with h/o HTN, HLD on Atorvastatin 40 mg daily, ,DM 2 on Metformin, A fib on Chronic A./C with Xaerlto 20 mg each morning, ? CHF ( no records to review incl Echo) Anxiety and depression, who resides in [place] where he is managed for his health problems by his PCP. Patient states he is compliant with all his prescrivbed meds, including Xarelto, last dose taken morning of 10/26 Pt visiting his elderly parents in [facility]. On 10/25 around 10pm iwas his last known normal. He endorses a moderate R sided headache, in the evwening of 10/25. He did not take any pain relief, and went to sleep . Headache was not radiating to his neck, he had noted some blurriness of hios Left eye, but he ignored it and went to bed, He denies loss of visikon, Dizziness or LOC. He also noted balance problems evening of 10/25, with a tendency to lean towards R side, denies fall. This morning upon waking up, he noted some speech difficulty and noted his left sided droop. He continued with his R Sided Headache, 5-7/10 as well as continued with Left eye Blurriness. He denies weakness of any extremity, denies falls or hitting his head. Denies CP, SOB, Palpitations, SOB, OLIVER, LE swelling, N/V/D/ Abd Pain, Dysuria , Flank pain or Hematuria Denies cough, F/C. Denies prior h/o TIA/ Stroke, Denies h/o [place], CHF or Cancer He came to ED morning of , around 10 am, 12 hrs after LKN In ED, he was Hypertensive, Afebrile, O2 sats adequate on RA, Pt had an MRI completed with the following results: IMPRESSION: 1. There are 3 separate small areas of acute infarct. 1 of these areas involves the body of the corpus callosum. A 2nd of these areas is the midline posterior carolyn. A 3rd of these areas is the right basal ganglia. 2. Late subacute small anterior right carolyn infarct. 3. Old small left paramidline pontine infarct. 4. Old infarct involving the rostrum of the corpus callosum . 5. Age-related volume loss and moderate to severe small vessel ischemic change, greater than expected for patient age. Pt referred for ST evaluation d/t CVA. Subjective Observations Pt sitting upright EOB upon ST entering room. Pt awake, alert and oriented x4. Pt denies any swallow or speech difficulties and reports he is ready to go home. Pt with clear speech. Reported by Patient/Caregiver Pain/Discomfort No Current Diet Regular (IDDSI 7) Baseline Feeding Method Independent in self-feeding The IDDSI Framework Protocol: IDDSI.1 Objective Assessment Mental Status Alert,Responsive,Cooperative Comment Pt with mild left sided facial droop and right sided lingual retraction. Own dentition, good condition. All other oral motor muscules appeared WFL. Food and Liquid Trials Position During Assessment Upright (90 degrees) Liquids Trialed Thin (IDDSI 0) Solid Trials Soft & Bite-sized (IDDSI 6), Regular (IDDSI 7) Administration Type Cup single sip,Self-feeding Oral Impairment Within functional limits Oral Phase Comments Pt consumed 1 saltine cracker and 1/2 a peanut butter and jelly sandwich with about 4 oz of thin juice via cup. Pt exhibited adequate bite and sip size and good rate, good oral acceptance and containment with all trials, prolonged mastication with sandwich, however adequate bolus formation and control. Pharyngeal Impairment Within functional limits Pharyngeal Phase Comments Pt exhibited no overt s/s of aspiration or penetration, clear vocal quality, no reports of food stuck in throat. Fatigue/Endurance Endurance WNL The IDDSI Framework Protocol: IDDSI.1 Findings Swallowing Function Within functional limits Severity of Swallow Impairment Within functional limits Prognosis Good Based on Cognitive status,Age,Duration of symptoms/severity Impact on Safety and Functioning No limitations Recommendations Instrumental Assessment No Swallowing Treatment No Recommended Solids Regular (IDDSI 7) Recommended Liquids Thin (IDDSI 0) Other Recommendations Pt presents with WFL swallow function. ST recommends regular solids and thin liquids with the below mentioned safe swallowing strategies in place. ST recommends re-referral for speech therapy if change in status. ST educated Pt on safe swallowing strategies. Safety Precautions/Swallowing Remain upright (90 degrees) Recommendations during all oral intake,Upright position at least 30 minutes after meals,Small bites and sips when eating,Slow rate; swallow between bites, Alternate liquids and solids Medication Recommendations As Tolerated Discharge Recommendations Home Education Patient/Caregiver Education Described results of evaluation,Patient expressed understanding of evaluation
--- NOTE | 2024-10-27 10:45 | OT.IP.EVAL ---
Current Diagnoses Type 2 diabetes mellitus with diabetic chronic kidney disease (10/26/24) Mixed hyperlipidemia (10/26/24) Paralytic ptosis of left eyelid (10/26/24) Palsy (spasm) of conjugate gaze (10/26/24) Other visual disturbances (10/26/24) Essential (primary) hypertension (10/26/24) Chronic diastolic (congestive) heart failure (10/26/24) Cerebral infarction, unspecified (10/26/24) Chronic kidney disease, stage 2 (mild) (10/26/24) Past Medical History (Last Updated 10/27/24 @ 10:54 by Lisa Caraballo MD) Chronic diastolic (congestive) heart failure 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 HLD (hyperlipidemia) Occupational Therapy Inpatient Evaluation/Re-Eval M1 PT/OT-IP Prior Functional Status Start: 10/27/24 10:51 Freq: NEEDED Status: Active Protocol: Document 10/27/24 10:51 [facility] (Rec: 10/27/24 11:14 [facility] [id number]) Medical Review Prior Functional Status Communication I Mobility and Gait Pt states prior does not use any devices to walk but at times use of hurry cane due to back and left foot sx last year. Activities of Daily Living and IADL's Pt states completely independent with all ADL,IADL, and drives. Prior Functional Level (Other details) Pt states is from [place] and visiting his dad who just retired from the police force. Not sure how accurate pt information is- would be beneficial to do a SLUMS on the pt. Information on pt's house in [place]. Social History Household Members family Living Arrangements House Number of Floors (Floors) One Floor Number of Stairs To Enter/Railing? no steps to enter Home Environment Standard Height Toilet,Tub/ Shower Home Equipment Front Wheel Walker,Four Wheel Walker,Straight Cane,Shower Seat with Backrest,Hand Held Shower,Grab Bars Near Toilet, Grab Bars In Shower Additional Social History Comment Pt states is disabled since breaking his back and left foot last year. M2 OT-IP Current Condition Start: 10/27/24 10:51 Freq: Status: Active Protocol: Document 10/27/24 10:51 [facility] (Rec: 10/27/24 11:14 [facility] [id number]) Occupational Therapy Current Condition Current Condition Evaluation Date 10/27/24 Treatment Diagnosis Temiple CVA's Diagnosis Onset Date 10/26/24 M3 OT- IP Subjective and Pain Start: 10/27/24 10:51 Freq: Status: Active Protocol: Document 10/27/24 10:51 [facility] (Rec: 10/27/24 11:14 [facility] [id number]) OT- Subjective Occupational Therapy Visit Type Type Initial Evaluation Visit Start Time 10:15 Visit Stop Time 10:45 Occupational Therapy Visit Comments Patient Comments Pt agreed to get up to brush his teeth. Patient/Caregiver Goals TO get better and open to going to acute rehab. OT Pain Assessment Pain When Pain Assessed At Rest Pain Present Pain Present Denied Pain M4 OT- IP ADL's Start: 10/27/24 10:51 Freq: Status: Active Protocol: Document 10/27/24 10:51 [facility] (Rec: 10/27/24 11:14 [facility] [id number]) OT [id number] Comments OT Self-Feeding Comments NOt at meal time. OT ADL-Grooming General Evaluation Grooming Ability Standby Assistance Areas Needing Assistance Retrieving/Set-up of Grooming Items Comments OT Grooming Comments Assist to open package for toothpaste. OT ADL-Oral Care General Eval Oral Care Ability Independent OT ADL-Dressing General Eval Lower Body Dressing Ability Minimal Assistance Comments OT Dressing Comments Pt use of right hand more than left hand for socks management needs. Pt having difficulty to keep his left leg crossed over at this time. CGA for balance while standing if having to do LB dressing needs for safety. OT ADL-Toileting Comments OT Toileting Comments Pt not having to go at this time. Educated pt to call for assist. OT ADL-Bathing Comments OT Bathing Comments Pt will benefit from sitting for showering needs. M5 OT- IP IADL's Start: 10/27/24 10:51 Freq: Status: Active Protocol: Document 10/27/24 10:51 [facility] (Rec: 10/27/24 11:14 [facility] [id number]) OT-Instrumental Activities of Daily Living Home Safety Awareness Awareness of Need for Assistance at Home Decreased Awareness Home Safety Comments At this time due to decreased vision and balance , best to have assist for his needs. M6 OT- IP Functional Cognition Start: 10/27/24 10:51 Freq: Status: Active Protocol: Document 10/27/24 10:51 [facility] (Rec: 10/27/24 11:14 [facility] [id number]) Cognitive Factors Limiting Selfcare Function Cognitive Ability Level of Alertness Alert Patient Orientation Name,Place,Situation Attention Span Ability Capable of Focused Attention, Capable of Sustained Attention Ability to Follow Commands Able to Follow One Step Commands Problem Solving Ability Needs Assist to Identify Solutions Executive Function Ability Unable to Remember Details Cognitive Comments Cognitive Assessment Comments Pt having blurred vision, especially with left eye- therefore making it hard for his to walk and complete cognitive assessments. Pt scored 207 seconds on [place] Making Part B by most having his left eye covered. Pt score implies severe impairments for visual attention, speed of processing, executive functioning, task switching, and mental flexibility. Pt at times not able to recall the directions and needing MODA vc to complete. OT- Vision and Hearing OT- Hearing Assessment OT- Hearing Assessment WFL OT- Vision Assessment Visual Acuity Glasses For Reading,No Vision Aides At Hospital Visual Attentiveness Impaired Occular Pursuits Impaired Horizontal Visual Convergence Impaired Visual Spacial Neglect Left Vision Assessment Comments Pt left eye stay in place looking to the right and not able to move his eye at this time. Pt's right eye not able to look nasally however able to scan to the right possible has hemianopsia. Pt educated to move his head so able to see better- especially when he is up on his feet. M7 OT- IP Mobility and Balance Start: 10/27/24 10:51 Freq: Status: Active Protocol: Document 10/27/24 10:51 [facility] (Rec: 10/27/24 11:14 [facility] [id number]) OT- Bed Mobility Assessment Supine to Sit Supine to Sit Assist Standby Assistance Sit to Supine Sit to Supine Assist Standby Assistance OT-Transfer Assessment Sit to and From Stand Sit to and from Stand Contact Guard Assistance Transfers Transfer Ability Contact Guard Assistance, Minimal Assistance Technique Transfer Destination Bed Transfer Technique Stand Step Pivot Devices Transfer Assistive Devices Gait Belt,Tripod Cane/Hurry Cane,Front Wheeled Walker Comments Mobility Comments Initially pt able to use his hurry cane to walk to the sink with CGA and having loss of balance to the right and needing CLAUDE to maintain his balance. Able to switch out to the FWW and pt still leans to the right and needing CGA for the short distance. Educated pt to call the nurse for assist and bed alarm placed. OT- Balance Assessment Sitting Balance and Reactions Static Sitting Balance Ability Good Dynamic Sitting Balance Ability Fair Standing Balance and Reactions Static Standing Balance Ability Fair Dynamic Standing Balance Ability Poor M8 OT- IP Objective Assessments Start: 10/27/24 10:51 Freq: Status: Active Protocol: Document 10/27/24 10:51 [facility] (Rec: 10/27/24 11:14 [facility] [id number]) OT Gross Range of Motion Upper Extremity Range of Motion Assessment Within Functional Limits OT Strength Upper Extremity Strength Assessment Within Functional Limits Comments Strength Comments 4+/5 for BUE OT- Coordination Assessment Upper Extremity Finger to Nose Test Within Functional Limits Finger Tapping Test Within Functional Limits Comments Coordination Comments Decreased for coordination and speed RUE 36 sec and LUE 43 seconds. OT Sensation Assessment Comments Summary Comments INtact for light touch. M9 OT- IP Assessment and Plan Start: 10/27/24 10:51 Freq: Status: Active Protocol: Document 10/27/24 10:51 [facility] (Rec: 10/27/24 11:14 [facility] [id number]) OT Summary Assessment and Plan Potential Rehabilitation Potential Good Analytic Complexity at Evaluation Moderate Summary OT Impairments Balance,Coordination, Functional Cognition, Functional Mobility,Self- Feeding,Grooming,Dressing, Toileting,Bathing,Toilet Transfers,Shower Transfers, Activity Tolerance Progress Towards Goals Slow Progress due to Medical Issues Assessment Summary Pt MOD complexity and main barriers are decreased functional vision and appears to have hemianopsia and that his left eye is in a fixed gaze to the right and has blurred vision on of the left eye as well. Pt heavily leans to the right and having loss of balance while standing at this sink for ADL needs. Pt will greatly benefit from acute rehab due to his multiple CVA' s. Pt is higher motivated to get better. Goals Self-Feeding Goal Independent Grooming Goal Independent Dressing Goal Independent Toileting Goal Independent Bathing Goal Independent Toilet Transfer Goal Independent Shower Transfer Goal Independent OT-Other Goals Pt to incorporate visual strategies for all ADL and mobility needs. Days to Meet Goals 10 Frequency of Treatment Other frequency 5x/week Treatment Plan OT Treatment Plan ADL Training,Functional Cognition Training,Functional Mobility,Vision Retraining, Patient/Family Education, Discharge Planning Discharge Recommendations OT Discharge Recommendations Acute Rehab Transportation Needs at Discharge Private Vehicle
--- NOTE | 2024-10-27 11:05 | PT.IIE ---
Current Diagnoses Type 2 diabetes mellitus with diabetic chronic kidney disease (10/26/24) Mixed hyperlipidemia (10/26/24) Paralytic ptosis of left eyelid (10/26/24) Palsy (spasm) of conjugate gaze (10/26/24) Other visual disturbances (10/26/24) Essential (primary) hypertension (10/26/24) Chronic diastolic (congestive) heart failure (10/26/24) Cerebral infarction, unspecified (10/26/24) Chronic kidney disease, stage 2 (mild) (10/26/24) Medical History (Last Updated 10/27/24 @ 10:54 by Lisa Caraballo MD) Chronic diastolic (congestive) heart failure 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 HLD (hyperlipidemia) Physical Therapy Inpatient Evaluation/Re-Eval M1 PT/OT-IP Prior Functional Status Start: 10/27/24 12:30 Freq: NEEDED Status: Active Protocol: Document 10/27/24 11:05 [facility] (Rec: 10/27/24 12:51 [facility] [id number]) Medical Review Prior Functional Status Medical History Reviewed Yes Communication able to make needs known Mobility and Gait pt stated that he was independent with all mobilities and ambulation without AD Activities of Daily Living and IADL's per OT note: Pt states completely independent with all ADL,IADL, and drives. Prior Functional Level (Other details) per OT note: Pt states is from [place] and visiting his dad who just retired from the police force. Not sure how accurate pt is- would be beneficial to do a SLUMS on the pt. Information on pt's house in [place]. Social History Household Members family Living Arrangements House Number of Floors (Floors) One Floor Number of Stairs To Enter/Railing? 1 level house no steps to enter Home Environment Standard Height Toilet,Walk in Shower,Tub/Shower Home Equipment Front Wheel Walker,Four Wheel Walker,Tub Transfer Bench, Shower Seat with Backrest,Hand Held Shower,Grab Bars Near Toilet,Grab Bars In Shower Additional Social History Comment pt stated that he lives alone in [place] and is here in [place] to visit his parents. pt stated that he is going to stay with his parents upon d/c and as long as he wants pt has a hurrycane M2 PT-IP Current Condition Start: 10/27/24 12:30 Freq: NEEDED Status: Active Protocol: Document 10/27/24 11:05 [facility] (Rec: 10/27/24 12:51 [facility] [id number]) Physical Therapy Current Condition Current Condition Evaluation Date 10/27/24 Treatment Diagnosis CVA; difficulty in walking Onset Date 10/26/24 M3 PT-IP Subjective Start: 10/27/24 12:30 Freq: NEEDED Status: Active Protocol: Document 10/27/24 11:05 [facility] (Rec: 10/27/24 12:51 [facility] [id number]) Subjective Physical Therapy Visit Type Type Initial Evaluation Visit Start Time 11:05 Visit Stop Time 11:25 Number of BRIEFCASE SEWER Visits 0 Physical Therapy Visit Comments Patient Comments agreeable to do PT M4 PT-IP Mobility and Gait Start: 10/27/24 12:30 Freq: NEEDED Status: Active Protocol: Document 10/27/24 11:05 [facility] (Rec: 10/27/24 12:51 [facility] [id number]) PT-Bed Mobility Assessment Supine to Sit Supine to Sit Independent PT-Transfer Assessment Sit to and From Stand Sit to and from Stand Standby Assistance Equipment Transfer Assistive Device Gait Belt,Tripod Cane/Hurry Cane,Front Wheeled Walker Orthotic/Prosthetic Devices or Brace: No Transfers Transfer Destination Chair Transfer Technique ambulated Transfer Ability Level of Assist Standby Assistance,Contact Guard Assistance,Minimal Assistance,1 Person Assistance ,Use of Upper Extremities Comments Mobility Comments pt supine in bed. pt stated that he wants to go home. obtained PLOF and home setup. BP chekced: 160/90. completed supine to sit independent. able to sit on EOB SBA. completed sit to stand SBA and ambulated in room using FWW ~ 30 ft SBA. pt sat on the chair and rested . Assessed ambulation using hurrycane. completed sit to stand SBA and ambulated in room using hurrycane CGA t o min A ~ 30 ft with (+) LOB x 1 . pt sat back on chair. positioned on the chair. call light and table placed within reach. informed pt regarding safety and use of fWW at this time. pt agreed. Gait Assessment Gait Gait Assistance Required: Standby Assistance,Contact Guard Assist,Minimum Assistance Distance (Feet) 30 Able to Maintain Weight Bearing Status Yes During Gait Assistive Devices Assistive Device Gait Belt,Tripod Cane/Hurry Cane,Front Wheeled Walker Orthotic/Prosthetic Devices or Brace: No Gait Deviations General Gait Pattern Ataxic,Decreased Stride Length ,Decreased Feet Clearance Factors Limiting Gait Function Factors Limiting Gait Function Decreased Activity Tolerance, Decreased Strength,Difficulty Following Directions,Limited Range of Motion,Poor Balance, Poor Safety Awareness PT-Balance Assessment Sitting Balance and Reactions Static Sitting Balance Ability Normal Dynamic Sitting Balance Ability Normal Standing Balance and Reactions Static Standing Balance Ability Good Dynamic Standing Balance Ability Fair Device Used hurrycane M5 PT-IP Objective Assessments Start: 10/27/24 12:30 Freq: NEEDED Status: Active Protocol: Document 10/27/24 11:05 [facility] (Rec: 10/27/24 12:51 [facility] [id number]) Orientation Orientation/Cognition Level of Alertness Alert Orientation Name Safety Awareness Decreased Safety Awareness Memory Description No Deficits Noted Gross Range of Motion Lower Extremity ROM Assessment Within Functional Limits Strength Lower Extremity Strength Assessment Within Functional Limits Sensation Assessment Sensation Gross Sensation WNL Muscle Tone Muscle Tone WNL Yes M6 PT-IP Treatment Start: 10/27/24 12:30 Freq: NEEDED Status: Active Protocol: Document 10/27/24 11:05 [facility] (Rec: 10/27/24 12:51 AB [id number]) Physical Therapy Treatment Education Education Provided Safety M7 PT-IP Assessment and Plan Start: 10/27/24 12:30 Freq: NEEDED Status: Active Protocol: Document 10/27/24 11:05 [facility] (Rec: 10/27/24 12:51 AB [id number]) PT Summary Assessment and Plan Potential Rehabilitation Potential Fair Status of Condition at Evaluation Evolving Summary Impairments Pain,ROM,Strength,Balance, Coordination,Sensation,Tone, Cognition,Bed Mobility, Transfers,Gait,Activity Tolerance Assessment Summary pt is a 59 y/o M who is admitted for CVA. pt requiring SBA to CGA with mobility using fWW. Assessed ambulation using a hurrycane but pt needing CGA to min A with (+) LOB. recommending use of FWW at this time. pt lives in [place] but with be going back to his parents house upon d/c from the hospital and pt stated that his parents will be able to assist him at home. pt will benefit from outpt PT. Goals Transfer Goal Independent,Front Wheeled Walker Gait Goal Independent,Front Wheel Walker Gait Distance 200 Other Goals improve ambulation using LRAD/ without AD 300 ft SBA Days to Meet Goals 10 Frequency of Treatment Frequency Of Treatment Once a Day Treatment Plan Physical Therapy Treatment Plan Bed Mobility Training,Transfer Training,Gait Training, Therapeutic Exercise,Balance Retraining,Discharge Planning, Hot or Cold Pack,Neuromuscular Re-ed,Coordination Retraining ,Manual Therapy Precautions Other Precautions falls Recommendations To Nursing Amount of Assist Needed 1 Person Assist Discharge Recommendations PT Discharge Recommendations Home with Assistance, Outpatient PT Transportation Needs at Discharge Private Vehicle
--- NOTE | 2024-10-27 14:03 | CM.DANOTE ---
Patient is a 59 yo male who was admitted INPT Status on 10/26/24 for Stroke. Pt has Active MEDICAID SPEND DOWN ONLY and no local PCP at this time. EMR was reviewed. Per MD, pt with multiple infarcts on imaging and admitted for PT/OT/ST and treatment. Not yet stable for discharge yet today. Per OT, recommending Acute Inpt Rehab. Per PT, would benefit from Acute vs home with outpt PT. Per ST, no swallow needs at this time. SW met bedside with pt and explained role and pt confirms that he has been living in [place] but just arrived a few days ago to visit and stay with his father in [place] for an open ended amount of time to visit. Pt states his sister lives locally as well. 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 Pt confirms he called [place] Medicaid and his [place] Medicaid has transferred over to [place] but with a spenddown of $2916 and then Medicaid will fully cover him. Pt aware that his hospital bill will meet the $2916 amount spenddown. SW discussed Acute Inpt Rehab and pt preference is Acute rehab at d/c if insurance will cover the cost and aware that it likely would be in [place] if accepted. Pt states that either his father or sister could transport him at d/c. SW [place] [facility] [place] and she confirms that Medicaid will cover Acute Rehab but currently they are on stop placement for new admits with unknown date for accepting new referrals. SW called [facility] [phone] and left detailed msg and faxed new referral requesting review and to check pt's insurance. Plan: SW to follow for Acute Rehab review to determine if they can accept pt and his insurance vs return home with family and outpt PT/OT. JESUS Mars Discharge Planning/Care Management CM Discharge Assessment Start: 10/27/24 14:00 Freq: Status: Active Protocol: Document 10/27/24 14:00 BF (Rec: 10/27/24 14:03 [id number]) Discharge Planning Assessment Assigned Adjunct History Instructor JESUS Whitfield DPOA/Assigned Designee Name father Tan informally Contact Information [phone] Advance Directives? No Advance Directives on File No History Provided By Patient,Medical Record Has Patient been admitted in last 30 No days? Prior Living Arrangements House Comment from [place] to visit with his dad for a while Household Members none Type of transporation used prior to Drives own vehicle admit Independent with ADL's Yes Is patient alert and oriented? Yes Needs Assistance With Home Chores / Shopping Caregiver for Another No DME Already Rented / Owned Cane Comment Acute Inpt Rehab recommended Barriers to Discharge Yes Comment Medicaid Spenddown Discharge Plan Inpatient Rehab Unit Community Services Physical Therapy,Occupational Therapy Transportation Arrangement Father or sister Referrals Initiated Other Additional Comment Prov Swed Acute Inpt Rehab referral made Whiteboard Updated in Patient Room with Yes name and ext. # of Adjunct History Instructor Review Status In Process Please Provide Date Initial DC 10/27/24 Assessment Was Performed Next Review Type Continued Stay Review
--- NOTE | 2024-10-27 20:47 | DI.ECHO.S_ITS ---
[facility] : : [address] : : [place] : : [id number] : : Phone: [phone] Echocardiogram Report + + :Name: TAYLOR COHEN Study Date: 10/28/2024 Height: 75 in : :[facility] ReadingLocation: Weight: 220 lb : : Gender: Male BSA: 2.3 m2 : :: 1965 Age: 59 yrs BP: 175/88 mmHg: :Reason For Study: ISCHEMIC STROKE : :Ordering Physician: YOKASTA, : :APARNA WOODWARD Performed By: Imer Reyna : :Referring: UNSPECIFIED : + + Interpretation Summary 1) Normal left ventricular thickness, size, wall motion, and systolic function (EF 65-70%). 2) Normal right ventricular size and function. 3) No significant valvular abnormalities. 4) Injection of contrast documented no interatrial shunt. 5) No prior Echo available for comparison. Procedure: A two-dimensional transthoracic echocardiogram with color flow and Doppler was performed. A saline contrast injection was performed to assess for cardiac shunting. The study quality was technically good. There is no prior echocardiogram noted for this patient. The patient was in normal sinus rhythm during the exam. Left Ventricle: The left ventricle is normal in size. There is mild concentric left ventricular hypertrophy. There is no ventricular septal defect visualized. The ejection fraction is estimated to be 65-70%. There are no focal wall motion abnormalities. Diastolic parameters suggest a relaxation abnormality of the left ventricle, consistent with probable normal filling pressures. Right Ventricle: The right ventricle is normal in size and function. Atria: The left atrium is moderately dilated. Right atrial size is normal. Injection of contrast documented no interatrial shunt. Mitral Valve: The mitral valve leaflets appear mildly thickened, but open well. There is mild mitral annular calcification. There is no mitral regurgitation noted. Aortic Valve: The aortic valve is trileaflet. The aortic valve is mildly calcified. There is no aortic valve stenosis. No aortic regurgitation is present. Tricuspid Valve: The tricuspid valve leaflets are thin and pliable. No tricuspid regurgitation. Pulmonary artery pressures cannot be estimated because of the lack of a measurable TR jet velocity. Pulmonic Valve: The pulmonic valve is not well seen, but is grossly normal. Great Vessels: The aortic root is normal size. The dimensions of the ascending aorta are normal. The pulmonary artery is normal size. The IVC is of normal diameter and collapses greater than 50% with a sniff. This suggests a low right atrial pressure of 3 mm Hg. Pericardium/ Pleura There is no pericardial effusion. There is no pleural effusion. MMode/2D Measurements & Calculations LVIDd: 4.7 cm LVOT diam: 1.9 cm LVIDs: 2.9 cm Ao root diam: 3.6 cm FS: 38.3 % asc Aorta Diam: 3.5 cm EPSS: 0.74 cm IVSd: 1.1 cm LVPWd: 1.1 cm LV smith. diameter/BSA (cm/m^2): 2.0 LV sys. diameter/BSA (cm/m^2): 1.3 LA A2 area: 25.9 cm2 RA long axis: 5.2 cm LA A4 area: 25.8 cm2 RA area: 11.9 cm2 LA length (vol): 6.6 cm RA vol: 23.3 ml LA vol: 86.4 ml RA : 10.2 ml/m2 LA vol index: 37.8 ml/m2 IVC diam: 2.0 cm RVD1 (basal): 3.7 cm RVD2 (mid): 3.0 cm TAPSE: 2.8 cm Doppler Measurements & Calculations Ao V2 max: 159.3 cm/sec LVOT Max Kannan: 116.5 cm/sec Ao V2 mean: 104.3 cm/sec LV V1 max P.4 mmHg Ao max P.2 mmHg LV V1 VTI: 26.6 cm Ao mean P.0 mmHg KATELYNN(I,D): 2.6 cm2 Ao V2 VTI: 31.0 cm KATELYNN(V,D): 2.2 cm2 sev ratio: 0.86 KATELYNN indexed to BSA (cm^2/m^2): 1.1 MV E max kannan: 67.9 cm/sec PA V2 max: 60.5 cm/sec MV A max kannan: 89.1 cm/sec PA V2 mean: 42.1 cm/sec MV E/A: 0.76 PA mean P.78 mmHg Med Peak E' Kannan: 6.7 cm/sec PA pr(Accel): 27.6 mmHg E/E' med: 10.1 Lat Peak E' Kannan: 8.3 cm/sec E/E' lat: 8.2 E/e' average: 9.1 MV dec time: 0.29 sec SV(LVOT): 79.2 ml Reading Physician:12:40 PM
[2024-10-27] MEDS: ATORVASTATIN 20 MG TABLET 80 MG PO (21:39)
[2024-10-28] VITALS (12 sets, daily range): BP systolic 166–176; BP diastolic 67–94; PULSE 52–88; RESP 15–19; TEMP 36.1–37.2; O2SAT 98–99
[2024-10-28] MEDS: CARBOXYMETHYLCELLULOSE DROPS 1 DROPS EYE-LEFT ×2 (06:33→20:52)
--- NOTE | 2024-10-28 07:33 | P.PN_ITS ---
Subjective Subjective Interval history: S: He was about the same today, left eye really isn't moving. He still has degree of facial weakness. The right eye does not move to the left past midline either. Exam Vital Signs (past 8 hours): - 10/28/24 00:00 10/28/24 02:00 10/28/24 04:00 Temperature 97.0 F L 98.9 F Pulse Rate 86 88 Respiratory Rate 19 19 Blood Pressure 176/94 H 166/84 H Pulse Oximetry 99 99 99 Oxygen Delivery Method Room Air Oxygen Flow Rate 0 0 10/28/24 06:00 Temperature Pulse Rate Respiratory Rate Blood Pressure Pulse Oximetry 99 Oxygen Delivery Method Room Air Oxygen Flow Rate Oxygen Delivery Method Room Air Oxygen Flow Rate 0 Narrative Exam Narrative: NAD, alert and oriented. Fluent speech. Lungs are clear, normal rate and effort. Heart is regular, no murmur gallop or rub. Abdomen is soft, non distended. Extremities are free of edema. Neuro: Motor strength 5/5 in arms and legs. He was pronounced left facial droop. His left eyelids are weak. His left eye does not move in any direction, the pupils are symmetric. His vision is normal in both eyes. His right eye only moved to midline but can not look laterally at all. Objective Imaging MR brain: : Radiologist's impression: 1. There are 3 separate small areas of acute infarct. 1 of these areas involves the body of the corpus callosum. A 2nd of these areas is the midline posterior carolyn. A 3rd of these areas is the right basal ganglia. 2. Late subacute small anterior right carolyn infarct. 3. Old small left paramidline pontine infarct. 4. Old infarct involving the rostrum of the corpus callosum. 5. 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 2. Hypertension, present on admission and active 3. HLD, present on admission and active 4. Paroxysmal atrial fibrillation on chronic Xarelto, present on admission and active. 5. DM2, present on admission and active. Plan: -we will discuss with Neurology later today. -continue current dual antiplatelet therapy. -awaiting echo results. -allowing permissive hypertension for another day and then we will start to move towards 140/80. Dispo: He was accepted for inpatient rehab at [facility] on October 29.
--- NOTE | 2024-10-28 09:33 | OT.IP.TRT ---
Current Diagnoses Type 2 diabetes mellitus with diabetic chronic kidney disease (10/26/24) Mixed hyperlipidemia (10/26/24) Paralytic ptosis of left eyelid (10/26/24) Palsy (spasm) of conjugate gaze (10/26/24) Other visual disturbances (10/26/24) Essential (primary) hypertension (10/26/24) Chronic diastolic (congestive) heart failure (10/26/24) Cerebral infarction, unspecified (10/26/24) Chronic kidney disease, stage 2 (mild) (10/26/24) Occupational Therapy Treatment Note M2 OT-IP Current Condition Start: 10/27/24 10:51 Freq: Status: Active Protocol: Document 10/27/24 10:51 [facility] (Rec: 10/27/24 11:14 [facility] [id number]) Occupational Therapy Current Condition Current Condition Evaluation Date 10/27/24 Treatment Diagnosis Mulitple CVA's Diagnosis Onset Date 10/26/24 M3 OT- IP Subjective and Pain Start: 10/27/24 10:51 Freq: Status: Active Protocol: Document 10/28/24 09:26 [facility] (Rec: 10/28/24 09:42 [facility] [id number]) OT- Subjective Occupational Therapy Visit Type Type Treatment Note Visit Start Time 08:52 Visit Stop Time 09:23 Occupational Therapy Visit Comments Patient Comments Pt agreed to do SLUMS and work with OT. Patient/Caregiver Goals Pt now insistent on going home with outpt PT and OT instead of inpt rehab. OT Pain Assessment Pain When Pain Assessed At Rest Pain Present Pain Present Denied Pain M5 OT- IP IADL's Start: 10/27/24 10:51 Freq: Status: Active Protocol: Document 10/27/24 10:51 [facility] (Rec: 10/27/24 11:14 [facility] [id number]) OT-Instrumental Activities of Daily Living Home Safety Awareness Awareness of Need for Assistance at Home Decreased Awareness Home Safety Comments At this time due to decreased vision and balance , best to have assist for his needs. M6 OT- IP Functional Cognition Start: 10/27/24 10:51 Freq: Status: Active Protocol: Document 10/28/24 09:26 [facility] (Rec: 10/28/24 09:42 [facility] [id number]) Cognitive Factors Limiting Selfcare Function Cognitive Ability Level of Alertness Alert Patient Orientation Name,Age,Birthday,Month,Date, Year,Day of Week,Place, Situation Attention Span Ability Capable of Focused Attention, Capable of Sustained Attention Ability to Follow Commands Able to Follow One Step Commands Memory Description Short Term Intact Executive Function Ability Unable to Remember Details Cognitive Tests SLUMS Pt scored 25/30 which implies mild cognitive deficits today . Pt able to recall 4/5 objects and able to recall 2/4 questions after paragraph read. Cognitive Comments Cognitive Assessment Comments Pt still having difficulty with his eyes and needing to turn his head to the left to see. Pt insists that he is smart and educated that his multiple CVA's may be affecting his cognition and to be careful and have assist - especially as his vision has deficits. Suggested pt see a neuro-spring coiling machine setter. OT- Vision and Hearing OT- Vision Assessment Visual Attentiveness Impaired Occular Pursuits Impaired Horizontal Visual Convergence Impaired Vision Assessment Comments Clarified with pt and states his had history of lazy eyes, but current status of left eye not moving and difficulty and inability to look to the left is new for him. Also pt having difficulty to scann to the left with his left eye. Educated to turn his head to the left and use his hand to point to the edge of paper/ device so able to read everything accurately. Also suggested pt to get assist with meds, finances, etc. Pt continues to states that he is smart and that he can do it on his own. M7 OT- IP Mobility and Balance Start: 10/27/24 10:51 Freq: Status: Active Protocol: Document 10/28/24 09:26 [facility] (Rec: 10/28/24 09:42 [facility] [id number]) OT- Bed Mobility Assessment Supine to Sit Supine to Sit Assist Standby Assistance Sit to Supine Sit to Supine Assist Standby Assistance OT-Transfer Assessment Sit to and From Stand Sit to and from Stand Standby Assistance,Contact Guard Assistance Transfers Transfer Ability Standby Assistance,Contact Guard Assistance Technique Transfer Destination Bed Transfer Technique Stand Step Pivot Devices Transfer Assistive Devices None,Gait Belt,Tripod Cane/ Hurry Cane Comments Mobility Comments Pt insists that he walks normally now , but then agrees still having difficulty with his balance and that it is worse than prior to his CVAs. CGA without a device and much safer with the hurry cane at this time. Pt will greatly benefit from continues PT as pt was seeing outpt PT for his foot and back sx that he had last year. Educated pt to call for assist. OT- Balance Assessment Sitting Balance and Reactions Static Sitting Balance Ability Normal Dynamic Sitting Balance Ability Good Standing Balance and Reactions Static Standing Balance Ability Fair Dynamic Standing Balance Ability Fair M8 OT- IP Objective Assessments Start: 10/27/24 10:51 Freq: Status: Active Protocol: Document 10/27/24 10:51 [facility] (Rec: 10/27/24 11:14 [facility] [id number]) OT Gross Range of Motion Upper Extremity Range of Motion Assessment Within Functional Limits OT Strength Upper Extremity Strength Assessment Within Functional Limits Comments Strength Comments 4+/5 for BUE OT- Coordination Assessment Upper Extremity Finger to Nose Test Within Functional Limits Finger Tapping Test Within Functional Limits Comments Coordination Comments Decreased for coordination and speed RUE 36 sec and LUE 43 seconds. OT Sensation Assessment Comments Summary Comments INtact for light touch. M9 OT- IP Assessment and Plan Start: 10/27/24 10:51 Freq: Status: Active Protocol: Document 10/28/24 09:26 [facility] (Rec: 10/28/24 09:42 [facility] [id number]) OT Summary Assessment and Plan Potential Rehabilitation Potential Good Analytic Complexity at Evaluation Moderate Summary OT Impairments Balance,Coordination, Functional Cognition, Functional Mobility,Self- Feeding,Grooming,Dressing, Toileting,Bathing,Toilet Transfers,Shower Transfers, Activity Tolerance Progress Towards Goals Progressing Toward Goals Assessment Summary Pt still having deficits with his eyes L > R eye. Pt insisting on wanting to go home with outpt therapy versus inpt rehab. Pt will benefit from 24/7 available assist and to see a neuro spring coiling machine setter. Goals Self-Feeding Goal Independent Grooming Goal Independent Dressing Goal Independent Toileting Goal Independent Bathing Goal Independent Toilet Transfer Goal Independent Shower Transfer Goal Independent OT-Other Goals Pt to incorporate visual strategies for all ADL and mobility needs. Days to Meet Goals 9 Frequency of Treatment Other frequency 5x/week Treatment Plan OT Treatment Plan ADL Training,Functional Cognition Training,Functional Mobility,Vision Retraining, Patient/Family Education, Discharge Planning Discharge Recommendations OT Discharge Recommendations Home with 24/7 Assist Available,Acute Rehab, Outpatient PT Transportation Needs at Discharge Private Vehicle
[2024-10-28] MEDS: ASPIRIN EC 81 MG TABLET PO (09:46)
[2024-10-28] MEDS: CLOPIDOGREL 75 MG TABLET PO (09:46)
[2024-10-28] MEDS: ERYTHROMYCIN OPHTH 1 GM OINT 1 APPLIC EYE-LEFT (09:47)
--- NOTE | 2024-10-28 10:05 | PT.IPTN ---
Current Diagnoses Type 2 diabetes mellitus with diabetic chronic kidney disease (10/26/24) Mixed hyperlipidemia (10/26/24) Paralytic ptosis of left eyelid (10/26/24) Palsy (spasm) of conjugate gaze (10/26/24) Other visual disturbances (10/26/24) Essential (primary) hypertension (10/26/24) Chronic diastolic (congestive) heart failure (10/26/24) Cerebral infarction, unspecified (10/26/24) Chronic kidney disease, stage 2 (mild) (10/26/24) Physical Therapy Treatment Note M2 PT-IP Current Condition Start: 10/27/24 12:30 Freq: NEEDED Status: Active Protocol: Document 10/27/24 11:05 AB (Rec: 10/27/24 12:51 AB [id number]) Physical Therapy Current Condition Current Condition Evaluation Date 10/27/24 Treatment Diagnosis CVA; difficulty in walking Onset Date 10/26/24 M3 PT-IP Subjective Start: 10/27/24 12:30 Freq: NEEDED Status: Active Protocol: Document 10/28/24 10:21 TS (Rec: 10/28/24 10:29 TS [id number]) Subjective Physical Therapy Visit Type Type Treatment Note Visit Start Time 10:05 Visit Stop Time 10:20 Number of HARDWOOD FLOOR LAYER Visits 1 Physical Therapy Visit Comments Patient Comments Pt found resting in bed, reports he wants to go home, he is agreeable to PT. M4 PT-IP Mobility and Gait Start: 10/27/24 12:30 Freq: NEEDED Status: Active Protocol: Document 10/28/24 10:21 TS (Rec: 10/28/24 10:29 TS [id number]) PT-Bed Mobility Assessment Supine to Sit Supine to Sit Independent Sit to Supine Sit to Supine Independent Scooting Scooting to Edge of Bed Independent PT-Transfer Assessment Sit to and From Stand Sit to and from Stand Standby Assistance Equipment Transfer Assistive Device Gait Belt,Tripod Cane/Hurry Cane Comments Mobility Comments Supine to sit Ind. He ambulates in the room ~60' SBA with use of cane. Pt has some unateadiness due to what he says is from a broken foot and back from a year ago. Pt was left sitting EOB. Gait Assessment Gait Gait Assistance Required: Standby Assistance Distance (Feet) 60 Able to Maintain Weight Bearing Status Yes During Gait Assistive Devices Assistive Device Gait Belt,Tripod Cane/Hurry Cane Orthotic/Prosthetic Devices or Brace: No Gait Deviations General Gait Pattern Ataxic,Decreased Stride Length ,Decreased Feet Clearance Factors Limiting Gait Function Factors Limiting Gait Function Decreased Activity Tolerance, Decreased Strength,Difficulty Following Directions,Limited Range of Motion,Poor Balance, Poor Safety Awareness PT-Balance Assessment Sitting Balance and Reactions Static Sitting Balance Ability Normal Dynamic Sitting Balance Ability Good Standing Balance and Reactions Static Standing Balance Ability Fair Dynamic Standing Balance Ability Fair Device Used hurrycane M5 PT-IP Objective Assessments Start: 10/27/24 12:30 Freq: NEEDED Status: Active Protocol: Document 10/27/24 11:05 AB (Rec: 10/27/24 12:51 AB [id number]) Orientation Orientation/Cognition Level of Alertness Alert Orientation Name Safety Awareness Decreased Safety Awareness Memory Description No Deficits Noted Gross Range of Motion Lower Extremity ROM Assessment Within Functional Limits Strength Lower Extremity Strength Assessment Within Functional Limits Sensation Assessment Sensation Gross Sensation WNL Muscle Tone Muscle Tone WNL Yes M6 PT-IP Treatment Start: 10/27/24 12:30 Freq: NEEDED Status: Active Protocol: Document 10/28/24 10:21 TS (Rec: 10/28/24 10:29 TS [id number]) Physical Therapy Treatment Education Education Provided Safety M7 PT-IP Assessment and Plan Start: 10/27/24 12:30 Freq: NEEDED Status: Active Protocol: Document 10/28/24 10:21 TS (Rec: 10/28/24 10:29 TS [id number]) PT Summary Assessment and Plan Potential Rehabilitation Potential Fair Summary Impairments Pain,ROM,Strength,Balance, Coordination,Sensation,Tone, Cognition,Bed Mobility, Transfers,Gait,Activity Tolerance Assessment Summary Pt is Ind with most mobility. He ambulates ~60'SBA with forrest of cane. He some unsteadiness with gait, no LOB. Pt reports broken foot and back from a year ago causes his unsteadiness. PT is recommending home with assist and outpatient PT. Goals Transfer Goal Independent,Front Wheeled Walker Gait Goal Independent,Front Wheel Walker Gait Distance 200 Other Goals improve ambulation using LRAD/ without AD 300 ft SBA Days to Meet Goals 10 Frequency of Treatment Frequency Of Treatment Once a Day Treatment Plan Physical Therapy Treatment Plan Bed Mobility Training,Transfer Training,Gait Training, Therapeutic Exercise,Balance Retraining,Discharge Planning, Hot or Cold Pack,Neuromuscular Re-ed,Coordination Retraining ,Manual Therapy Precautions Other Precautions falls Recommendations To Nursing Amount of Assist Needed 1 Person Assist Discharge Recommendations PT Discharge Recommendations Home with Assistance, Outpatient PT Transportation Needs at Discharge Private Vehicle
--- NOTE | 2024-10-28 12:21 | CM.DPC ---
DCP Cont: Per MD, pt is making progress and still recommending Acute Inpt Rehab at [facility] for optimal progress and improvement and pt confirms he remains agreeable to this option at [facility] if accepted and bed available. SW called [facility] and spoke to Kapil and confirmed they received the referral and just received confirmation that they can accept his Medicaid and have open beds and feel pt would be a good fit for their program. Kapil states he will send for insurance auth and typically get auth quickly through Medicaid towards likely being able to accept pt tomorrow Fri10/29/24. Kapil states he will call either this afternoon or in the AM to update [facility] and confirm they have what they need to accept pt Friday. Pt had confirmed yesterday that either his father or sister could provide transport to the facility at [facility]. JESUS Mars
[2024-10-28] MEDS: OXYCODONE IR 5 MG TABLET PO (20:51)
[2024-10-28] MEDS: ATORVASTATIN 20 MG TABLET 80 MG PO (20:51)
[2024-10-29] VITALS (9 sets, daily range): BP systolic 160–186; BP diastolic 72–92; PULSE 58–66; RESP 14–16; TEMP 36.6–37.2; O2SAT 94–99
[2024-10-29] MEDS: ASPIRIN EC 81 MG TABLET PO (08:32)
[2024-10-29] MEDS: CLOPIDOGREL 75 MG TABLET PO (08:32)
--- NOTE | 2024-10-29 12:29 | OT.IPNOTE ---
Pt eating lunch and not wanting to do any therapy at this time. Pt still having deficits with his eyes and will greatly benefit from a neuro ophthalmoligist. Pt to have outpt therapy versus home health.
--- NOTE | 2024-10-29 12:49 | CM.DPNOTE ---
DCP Continued: Reviewed EMR and team rounds for pt?s medical status. Per hospitalist, hopeful that pt can transfer to acute rehab if accepted. Per [facility], pt is a good candidate but his insurance (Medicaid Spenddown of $2900) is a barrier. DCP spoke with hospitalist and pt about the above, pt stated preference for dc home with home health. Patient does not have a PCP established so that will limit HH agencies available. Pt stated he has no preference for a specific agency. DCP strongly encouraged pt to rectify spenddown amount to activate [place] Medicaid, pt verbalized understanding and hopeful to use funds with spenddown for this hospital admission bill. DCP called [facility] and inquired about referrals with Medicaid Spenddown insurance, it is reported that they do not accept this at this time. DCP discussed establishing a PCP with pt, pt stated a preference for remaining in the [facility] with a female Provider if available. DCP sent message to Transitional Care Team requesting pt to establish with provider taking new patients; pending acceptance. DCP discussed pt with PT, it is reported that pt is able to discharge home and appropriate for outpatient PT vs home health. Plan: Anticipating dc home with family (Father in law, Travis to transport) when medically cleared. Pending establishment with PCP. CM Team will continue to follow for coordination of discharge plans. PETER Harden
--- NOTE | 2024-10-29 13:12 | P.DS_ITS ---
History of Present Illness History of Present Illness Chief complaint: poss stroke Narrative: From H&P: Michael Mckinley, 59 M, with h/o HTN, HLD on Atorvastatin 40 mg daily, ,DM 2 on Metformin, A fib on Chronic A./C with Xaerlto 20 mg each morning, ? CHF ( no records to review incl Echo)Anxiety and depression, who resides in [place] where he is managed for his health problems by his PCP. Patient states he is compliant with all his prescrivbed meds, including Xarelto, last dose taken morning of 10/26 Pt visiting his elderly parents in [facility]. On 10/25 around 10pm iwas his last known normal. He endorses a moderate R sided headache, in the evening of 10/25. He did not take any pain relief, and went to sleep. Headache was not radiating to his neck, he had noted some blurriness of hios Left eye, but he ignored it and went to bed, He denies loss of visikon, Dizziness or LOC. He also noted balance problems evening of 10/25, with a tendency to lean towards R side, denies fall. This morning upon waking up, he noted some speech difficulty and noted his left sided droop. He continued with his R Sided Headache, 5-7/10 as well as continued with Left eye Blurriness. He denies weakness of any extremity, denies falls or hitting his head. Denies CP, SOB, Palpitations, SOB, OLIVER, LE swelling, N/V/D/ Abd Pain, Dysuria , Flank pain or Hematuria Denies cough, F/C. Denies prior h/o TIA/ Stroke, Denies h/o VT, CHF or Cancer He came to ED morning of 10/26, around 10 am, 12 hrs after LKN In ED, he was Hypertensive, Afebrile, O2 sats adequate on RA, HR 60, SBP elevated NIHSS 5 in ED, Left facial droop, Left gaze palsy, Left eye blurred vision, unable to close Left eye, initial mild speech difficulty As CT not available at , pt had MRI Brain, indicating multiple infarcts, no bleed, no mass, he was transported to [facility] for CT head, and CTA head and neck. MRI Brain: 1. There are 3 separate small areas of acute infarct. 1 of these areas involves the body of the corpus callosum. A 2nd of these areas is the midline posterior carolyn. A 3rd of these areas is the right basal ganglia. 2. Late subacute small anterior right carolyn infarct. 3. Old small left paramidline pontine infarct. 4. Old infarct involving the rostrum of the corpus callosum. 5. Age-related volume loss and moderate to severe small vessel ischemic change, greater than expected for patient age. Discharge Providers Provider Date of admission: 10/26/24 17:13 Discharge Date: 10/29/24 Primary care physician: Romaine Nevarez MD Consults: 10/26/24 18:17 Consult to Discharge Planning Routine Comment: Consult to Occupational Therapy Evaluate & Treat Comment: Physician Instructions: Evaluate and treat Consult to Physical Therapy Evaluate & Treat Comment: Physician Instructions: Evaluate and Treat Consult to Speech Therapy Evaluate & Treat Comment: Physician Instructions: Evaluate and treat Discharge provider: Rubens Pantoja MD Summary Hospital Course Discharge Diagnosis: 1. 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 Present on admission and stable. These represent multiple lacunar infarcts. These do not appear to be cardioembolic. 2. Hypertension, present on admission and active 3. HLD, present on admission and active 4. Paroxysmal atrial fibrillation on chronic Xarelto, present on admission and active. 5. DM2, present on admission and active. Hospital Course: The patient was admitted with subacute stroke symptoms and specifically had a complete gaze palsy of the left eye with inability to move the eye in any direction. He initially had hazy vision which improved and normal vision. He also had a left lateral gaze palsy of his right eye. The patient had normal visual lubin on the day of discharge. Initial imaging indicated multiple lacunar infarcts. He was on Xarelto long-term for atrial fibrillation. The patient had permissive hypertension and then his blood pressure medications were reintroduced. He did well with therapies, having no obvious deficits other than his ocular motor function. Recommendations were for inpatient rehab, his pair denied this and ultimately the patient chose to return home with home health. He was new to the area, visiting from [place]. He will be here for 6 months or so visiting parents. Arrangements were made for home health PT and OT as well as follow up with Dr. Nevarez. The patient would benefit from referral for neuro ophthalmology rehabilitation services outpatient. He may benefit from prism glasses or other approaches to his severe gaze palsies. Case was reviewed with Neurology at [facility], recommendations were to continue Xarelto, not add dual antiplatelet therapy, and optimize blood pressure control and diabetic glucose control. The patient was discharged in good condition on October 29. Status at Discharge Cognitive/behavioral status at discharge: oriented Functional status at discharge: independent ambulation Overall status at discharge: patient is progressing back to baseline Time Spent with Patient Time spent: Greater than 30 minutes Exam Vital Signs (past 8 hours): - 10/29/24 06:00 10/29/24 08:00 10/29/24 10:00 Temperature 98.8 F Pulse Rate 58 L Respiratory Rate 16 Blood Pressure 165/89 H Pulse Oximetry 99 99 99 Oxygen Delivery Method Room Air Room Air Oxygen Delivery Method Room Air Oxygen Flow Rate 0 Narrative Exam Narrative: NAD, alert and oriented. Fluent speech. Lungs are clear, normal rate and effort. Heart is regular, no murmur gallop or rub. Abdomen is soft, non distended. Extremities are free of edema. Neuro: Motor strength 5/5 in arms and legs. He was pronounced left facial droop. His left eyelids are weak. His left eye does not move in any direction, the pupils are symmetric. His vision is normal in both eyes. His right eye only moved to midline but can not look laterally at all Objective ECG Impression: Tele strips: NSR. Imaging Multiple studies:: Radiologist's impression: Echo: 1) Normal left ventricular thickness, size, wall motion, and systolic function (EF 65-70%). 2) Normal right ventricular size and function. 3) No significant valvular abnormalities. 4) Injection of contrast documented no interatrial shunt. 5) No prior Echo available for comparison. Brain MRI: 1. There are 3 separate small areas of acute infarct. 1 of these areas involves the body of the corpus callosum. A 2nd of these areas is the midline posterior carolyn. A 3rd of these areas is the right basal ganglia. 2. Late subacute small anterior right carolyn infarct. 3. Old small left paramidline pontine infarct. 4. Old infarct involving the rostrum of the corpus callosum. 5. Age-related volume loss and moderate to severe small vessel ischemic change, greater than expected for patient age. CT head: No acute abnormalities CTA head and neck: No large vessel occlusion. 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 Present on admission and stable. These represent multiple lacunar infarcts. These do not appear to be cardioembolic. 2. Hypertension, present on admission and active 3. HLD, present on admission and active 4. Paroxysmal atrial fibrillation on chronic Xarelto, present on admission and active. 5. DM2, present on admission and active. Plan of Treatment: Discharge home on ongoing medical therapy including Xarelto. He will have close follow up require optimization of his diabetes and blood pressure control. Home health will also begin with home therapies. Discharge Plan Discharge Plan Patient Disposition: Home Provider Discharge Comment: Stable for discharge home, with home health. Declined for inpatient rehab. Discharge orders & Medications Prescriptions: New atorvastatin 20 mg Tablet 80 mg PO BEDTIME Qty: 30 2RF TheraTears 0.25 % Drops 1 drops EYE-LEFT PRN PRN (Reason: Dry Eye(S)) Qty: 60 1RF Refresh Lacri-Lube 56.8-42.5 % Ointment 1 applic EYE-LEFT BID PRN (Reason: Irritation) Qty: 30 0RF Continued fluoxetine 20 mg Capsule 20 mg PO DAILY gabapentin 600 mg Tablet 600 mg PO DAILY metoprolol succinate 100 mg Tablet Extended Release 24 Hr 100 mg PO DAILY metformin 1,000 mg Tablet 1,000 mg PO DAILY losartan 100 mg Tablet 100 mg PO DAILY spironolactone 50 mg Tablet 50 mg PO DAILY Xarelto 20 mg tablet 20 tab PO DAILY Discontinued atorvastatin [Lipitor] 20 MG tablet 40 mg PO QDAY Follow up/Referrals: Romaine Nevarez MD [Primary Care Provider] - Diet/Activity/Treatments Diet: Carb-consistent/Diabetic Activity: As tolerated. Visit Report/Discharge Packet Stand Alone Forms: Patient Portal/API, Stroke Signs & Symptoms Discharge Data Primary Care Provider: Romaine Nevarez
--- NOTE | 2024-10-29 16:33 | PC.NURSE ---
Patient is A&OX4, hypertensive this a.m. but not given antihypertension medication SBP <190. NIH still 4 no new neurological changes. Patient is cleared for discharge and CM updated patient that they were unable to get insurance coverage for Stroke rehab facilities or .He is eager for discharge home and arranges for transport home at 1430. He acknowledges understanding of recommendations to follow up with getting PCP, as well as medications and worsening or new stroke symptoms. He is escorted via w/ch to private vehicle for discharge home at 1445.
== END 2024-10-29 14:45 | disposition home or self-care (01) | DRG 65 ==
LOC: ED 17:02 → AC 17:14
PROVIDERS: Hospitalist; Admitting Provider Internal Medicine; Emergency Provider Emergency Medicine; PCP Internal Medicine; Referring Provider Emergency Medicine; Visit Provider Internal Medicine
DX: I63.9 Cerebral infarction, unspecified (principal); I13.0 Hypertensive heart and chronic kidney disease with heart failure and stage 1 through stage 4 chronic kidney disease, or unspecified chronic kidney disease; I50.32 Chronic diastolic (congestive) heart failure; H53.8 Other visual disturbances; R29.810 Facial weakness; R47.9 Unspecified speech disturbances; R29.705 NIHSS score 5; H02.432 Paralytic ptosis of left eyelid; E11.22 Type 2 diabetes mellitus with diabetic chronic kidney disease; N18.2 Chronic kidney disease, stage 2 (mild); E78.2 Mixed hyperlipidemia; R29.704 NIHSS score 4; I48.0 Paroxysmal atrial fibrillation; G83.89 Other specified paralytic syndromes; Z79.84 Long term (current) use of oral hypoglycemic drugs; Z79.01 Long term (current) use of anticoagulants
CPT/HCPCS: 36415; 70551; 80053; 81003; 81015; 82550; 82570; 82962; 84300; 84443; 84484; 85025; 85610; 85730; 92610; 93005; 93306; 96374; 97129; 97162; 97166; 97530; 99285; A9270; J2060

== ENCOUNTER → 2024-11-18 08:13 | Outpatient (CLI) | payer OTHER, SELFPAY ==
[2024-10-26 18:18] VITALS: BMI 27.5
[2024-11-18 09:07] LABS: Cholesterol 148 mg/dL (140-199); HDL Cholesterol 57 mg/dL (40-60); LDL Cholesterol Calculated 53 mg/dL (<100); Triglycerides 192 mg/dL (35-150)
[2024-11-18 09:10] LABS: Hemoglobin A1C% w Est Avg Glu 5.3 % (4.0-6.0)
== END ==
PROVIDERS: PCP Nurse Practitioner Family; Referring Provider Nurse Practitioner Family; Visit Provider Nurse Practitioner Family
DX: E78.5 Hyperlipidemia, unspecified (principal); E11.22 Type 2 diabetes mellitus with diabetic chronic kidney disease; N18.2 Chronic kidney disease, stage 2 (mild); I12.9 Hypertensive chronic kidney disease with stage 1 through stage 4 chronic kidney disease, or unspecified chronic kidney disease
CPT/HCPCS: 36415; 80061; 83036

== ENCOUNTER → 2024-12-31 08:16 | Outpatient (CLI) | payer OTHER, SELFPAY ==
[2024-10-26 18:18] VITALS: BMI 27.5
[2024-12-31 08:43] LABS: Add Manual Diff / Slide Review NO; Basophils Absolute Auto 100 /uL (0-100); Basophils Percent Auto 0.5 % (0-2); Eosinophils Absolute Auto 500 /uL (0-450); Eosinophils Percent Auto 5.6 % (2-4); Hematocrit 32.2 % (41-53); Hemoglobin 10.8 g/dL (13.5-17.5); Lymphocytes Absolute Auto 3700 /uL (1100-4500); Lymphocytes Percent Auto 37.6 % (25-40); Mean Corpuscular HGB Conc 33.4 % (30-36); Mean Corpuscular Hemoglobin 32.8 PG (26-34); Mean Corpuscular Volume 98.2 fL (80-100); Monocytes Absolute Auto 700 /uL (0-900); Monocytes Percent Auto 7.5 % (3-14); Neutrophils Absolute Auto 4700 /uL (1500-7000); Neutrophils Percent Auto 48.8 % (50-75); Platelet Count 247 X10^3/uL (150-400); Red Blood Cell Count 3.28 X10^6/uL (4.5-5.9); Red Cell Distribution Width 13.8 % (11.6-14.8); White Blood Cell Count 9.7 X10^3/uL (4.5-11.0)
[2024-12-31 09:58] LABS: Alanine Aminotransferase 20 IU/L (<50); Albumin Globulin Ratio 1.2 (1.0-2.8); Alkaline Phosphatase 68 U/L (38-126); Aspartate Aminotransferase 28 IU/L (17-59); BUN Creatinine Ratio 12.9 (6-22); Bilirubin Total 0.6 mg/dL (0.2-1.3); Blood Urea Nitrogen 20 mg/dL (9-20); Calcium 9.6 mg/dL (8.4-10.2); Carbon Dioxide 21 mmol/L (22-32); Chloride 112 mmol/L (98-107); Estimated Glomerular Filt Rate 51 mL/min (>60); Globulin 3.4 g/dL (1.7-4.1); Glucose 198 mg/dL (80-110); HEMOLYSIS < 15 (0-50); Potassium 4.5 mmol/L (3.4-5.1); Sodium 141 mmol/L (137-145); Total Protein 7.4 g/dL (6.3-8.2)
== END ==
PROVIDERS: PCP Nurse Practitioner Family; Referring Provider Nurse Practitioner Family; Visit Provider Nurse Practitioner Family
DX: I50.32 Chronic diastolic (congestive) heart failure (principal); E11.22 Type 2 diabetes mellitus with diabetic chronic kidney disease; N18.2 Chronic kidney disease, stage 2 (mild); Z86.73 Personal history of transient ischemic attack (TIA), and cerebral infarction without residual deficits
CPT/HCPCS: 36415; 80053; 85025

== ENCOUNTER → 2025-01-18 10:12 | Outpatient (CLI) | payer MEDICAID, SELFPAY ==
[2024-10-26 18:18] VITALS: BMI 27.5
[2025-01-18 10:28] LABS: Appearance Urine UA CLEAR; Bilirubin Urine UA NEGATIVE (NEGATIVE); Color Urine UA YELLOW; Glucose Urine UA NEGATIVE (Negative); Ketones Urine UA NEGATIVE (NEGATIVE); Leukocyte Esterase Urine UA NEGATIVE (NEGATIVE); Nitrite Urine UA NEGATIVE (Negative); Occult Blood Urine UA TRACE-INTACT (Negative); Protein Urine UA 2+ (Negative); Specific Gravity Urine UA 1.025 (1.000-1.035); Urobilinogen Urine UA 0.2 E.U./dL (0.2)
[2025-01-18 11:00] LABS: Bacteria Urine None Seen; Culture Indicated Urine Cult Not Indicated; RBC Urine 0-1/HPF (0-5/HPF); Squamous Epithelial Cell Urine None Seen (0-5/HPF); Urine Volume 10mL (spun); WBC Urine 0-1/HPF (0-5/HPF)
== END ==
PROVIDERS: PCP Nurse Practitioner Family; Referring Provider Nurse Practitioner Family; Visit Provider Nurse Practitioner Family
DX: R30.0 Dysuria (principal)
CPT/HCPCS: 81001

== ENCOUNTER → 2025-04-02 09:15 | Outpatient (CLI) | payer OTHER, SELFPAY ==
[2024-10-26 18:18] VITALS: BMI 27.5
[2025-04-02 10:24] LABS: Add Manual Diff / Slide Review NO; Basophils Absolute Auto 100 /uL (0-100); Basophils Percent Auto 0.7 % (0-2); Eosinophils Absolute Auto 500 /uL (0-450); Eosinophils Percent Auto 5.8 % (2-4); Hematocrit 31.8 % (41-53); Hemoglobin 10.9 g/dL (13.5-17.5); Lymphocytes Absolute Auto 3100 /uL (1100-4500); Lymphocytes Percent Auto 34.3 % (25-40); Mean Corpuscular HGB Conc 34.1 % (30-36); Mean Corpuscular Hemoglobin 33.2 PG (26-34); Mean Corpuscular Volume 97.4 fL (80-100); Monocytes Absolute Auto 800 /uL (0-900); Monocytes Percent Auto 9.1 % (3-14); Neutrophils Absolute Auto 4500 /uL (1500-7000); Neutrophils Percent Auto 50.1 % (50-75); Platelet Count 215 X10^3/uL (150-400); Red Blood Cell Count 3.27 X10^6/uL (4.5-5.9); Red Cell Distribution Width 13.9 % (11.6-14.8)
[2025-04-02 10:48] LABS: HEMOLYSIS < 15 (0-50); Iron 95 ug/dL (49-181)
[2025-04-02 10:52] LABS: Alanine Aminotransferase 17 IU/L (<50); Albumin 3.9 g/dL (3.5-5.0); Albumin Globulin Ratio 1.2 (1.0-2.8); Alkaline Phosphatase 76 U/L (38-126); Aspartate Aminotransferase 20 IU/L (17-59); BUN Creatinine Ratio 14.6 (6-22); Bilirubin Total 0.7 mg/dL (0.2-1.3); Blood Urea Nitrogen 23 mg/dL (9-20); Calcium 9.2 mg/dL (8.4-10.2); Carbon Dioxide 24 mmol/L (22-32); Chloride 106 mmol/L (98-107); Estimated Glomerular Filt Rate 50 mL/min (>60); Globulin 3.3 g/dL (1.7-4.1); Glucose 182 mg/dL (70-99); HEMOLYSIS < 15 (0-50); Potassium 4.5 mmol/L (3.4-5.1); Sodium 137 mmol/L (137-145); Total Protein 7.2 g/dL (6.3-8.2)
[2025-04-02 10:59] LABS: Percent Iron Saturation 37 % (20-50); Total Iron Binding Capacity 257 ug/dL (261-462); Transferrin 211 mg/dL (206-381)
[2025-04-02 11:21] LABS: Prostate Specific Antigen 0.296 ng/mL (0.10-4.00)
== END ==
PROVIDERS: Family Provider Nurse Practitioner Family; PCP Nurse Practitioner Family; Referring Provider Nurse Practitioner Family; Visit Provider Nurse Practitioner Family
DX: I50.32 Chronic diastolic (congestive) heart failure (principal); E11.22 Type 2 diabetes mellitus with diabetic chronic kidney disease; E78.5 Hyperlipidemia, unspecified; N18.2 Chronic kidney disease, stage 2 (mild); I10 Essential (primary) hypertension; Z86.73 Personal history of transient ischemic attack (TIA), and cerebral infarction without residual deficits; R35.0 Frequency of micturition
CPT/HCPCS: 36415; 80053; 83540; 83550; 84153; 85025

== ENCOUNTER → 2025-04-06 08:16 | Outpatient (CLI) | payer OTHER, SELFPAY ==
[2024-10-26 18:18] VITALS: BMI 27.5
[2025-04-06 09:13] LABS: Creatinine Urine Random 113.09 mg/dL
[2025-04-06 09:32] LABS: Microalbumin Urine Random 60.2 mg/dL (0-1.6)
[2025-04-06 09:47] LABS: Hemoglobin A1C% w Est Avg Glu 5.8 % (4.0-6.0)
== END ==
PROVIDERS: Family Provider Nurse Practitioner Family; PCP Nurse Practitioner Family; Referring Provider Nurse Practitioner Family; Visit Provider Nurse Practitioner Family
DX: E11.22 Type 2 diabetes mellitus with diabetic chronic kidney disease (principal); N18.2 Chronic kidney disease, stage 2 (mild); Z86.73 Personal history of transient ischemic attack (TIA), and cerebral infarction without residual deficits; I50.32 Chronic diastolic (congestive) heart failure; I13.0 Hypertensive heart and chronic kidney disease with heart failure and stage 1 through stage 4 chronic kidney disease, or unspecified chronic kidney disease
CPT/HCPCS: 36415; 82043; 82570; 83036

== ENCOUNTER → 2025-09-28 08:03 | Outpatient (CLI) | payer MEDICARE, MEDICAID, SELFPAY ==
[2024-10-26 18:18] VITALS: BMI 27.5
[2025-09-28 08:39] LABS: Hemoglobin A1C% w Est Avg Glu 5.7 % (4.0-6.0)
[2025-09-28 08:56] LABS: Cholesterol 192 mg/dL (140-199); HDL Cholesterol 65 mg/dL (40-60); Triglycerides 283 mg/dL (35-150)
== END ==
PROVIDERS: PCP Nurse Practitioner Family; Referring Provider Nurse Practitioner Family; Visit Provider Nurse Practitioner Family
DX: E11.22 Type 2 diabetes mellitus with diabetic chronic kidney disease (principal); E78.2 Mixed hyperlipidemia; Z86.73 Personal history of transient ischemic attack (TIA), and cerebral infarction without residual deficits; N18.2 Chronic kidney disease, stage 2 (mild); I10 Essential (primary) hypertension
CPT/HCPCS: 36415; 80061; 83036